=== PATIENT | female | born 1955 ===

== ENCOUNTER 2017-03-23 15:08 | Inpatient (IN) | payer MEDICARE ==
[2017-03-23] MEDS ORDERED: Albuterol-Ipratrop 3 mg / 0.5 (3 ml) UD ONE ×2 (15:20→16:08)
[2017-03-23] MEDS ORDERED: MethylPREDNISolone 40 mg Vial IVP STA (15:46)
[2017-03-23] MEDS ORDERED: Albuterol-Ipratrop 3 mg / 0.5 (3 ml) UD INH STA ×3 (15:46→15:47)
--- NOTE | 2017-03-23 16:01 | C.PDOC ---
History Of Present Illness Patient is a 61 y/o female, whose PMHx includes COPD, and asthma, that presents to the ED for evaluation of cough, and wheezing for the past week. Notes that her symptoms have been getting worse. Pt reports being seen by PMD last week and was given unknown meds. Pt states that she returned to PMD today and was told to report to ED for further evaluation. Otherwise, pt denies any fever, chills, or any other complaints at this time. Time Seen by Provider: 03/23/17 15:36 Chief Complaint (Nursing): Shortness Of Breath History Per: Patient History/Exam Limitations: no limitations Onset/Duration Of Symptoms: Days Current Symptoms Are (Timing): Still Present Severity: None Pain Scale Rating Of: 0 Associated Symptoms: denies: Fever, Chills, Sweating, Chest Pain, Bloody Cough, Heart Racing, Leg/Calf Pain, Ankle/Leg Swelling, Dizziness, Light-headedness, Anxiety, Tingling In Hands Or Face, Musle Spasms In Hands Or Feet Reports Recently: Treated By A Physician Recent travel outside of the [facility]: No Additional History Per: Patient Past Medical History Reviewed: Historical Data, Nursing Documentation, Vital Signs Vital Signs: Last Vital Signs Temp 98.1 F 03/23/17 18:27 Pulse 84 03/23/17 19:43 Resp 20 03/23/17 19:10 BP 146/87 03/23/17 18:27 Pulse Ox 100 03/23/17 18:27 - Medical History PMH: Arthritis, Asthma, COPD, CVA (1990), Depression, HTN Denies: HIV, Chronic Kidney Disease, Seizures, Sexually Transmitted Disease Surgical History: Appendectomy (AGE OF 7), Cholecystectomy (2014) - [employer] (Closed) Procedures MEASURE OF CARDIAC SAMPL & PRESSURE, L HEART, PERC APPROACH (02/01/16) Family History: States: Unknown Family Hx - Social History Hx Tobacco Use: No Hx Alcohol Use: No Hx Substance Use: No - Immunization History Hx Tetanus Toxoid Vaccination: No Hx Influenza Vaccination: Yes Hx Pneumococcal Vaccination: Yes Review Of Systems Except As Marked, All Systems Reviewed And Found Negative. Constitutional: Negative for: Fever, Chills Cardiovascular: Negative for: Chest Pain, Palpitations, Edema, Light Headedness Respiratory: Positive for: Cough, Shortness of Breath, Wheezing Neurological: Negative for: Headache, Dizziness Physical Exam - Physical Exam Appears: Non-toxic, No Acute Distress Skin: Normal Color, Warm, Dry Head: Atraumatic, Normacephalic Eye(s): bilateral: Normal Inspection, EOMI Neck: Normal ROM, Supple Chest: Symmetrical, No Tenderness Cardiovascular: Rhythm Regular, No Murmur Respiratory: No Accessory Muscle Use, No Rales, Rhonchi (diffuse), Wheezing ( diffuse) Gastrointestinal/Abdominal: Soft, No Tenderness Extremity: Normal ROM, No Deformity Neurological/Psych: Oriented x3, Normal Speech, Normal Cognition ED Course And Treatment - Laboratory Results Result Diagrams: 03/23/17 16:09 03/23/17 16:09 O2 Sat by Pulse Oximetry: 98 (on RA) Pulse Ox Interpretation: Normal Progress Note: Labs, EKG, CXR ordered and reviewed. Patient was treated with Albuterol, and Solu-Medrol in the ER. Medical Decision Making Medical Decision Making: copd/asthma r/o pna- labs iamging pending- nebs steriods ekg nsr [address] t wave changes normal intervals 450: pt not improving outpt. needs iv steriods. noted la. no other sirs criteria. code sepsis not activated. cxr neg, but covered emprically. dr bradford accetps Disposition - Disposition Disposition: HOSPITALIZED Disposition Time: 16:50 Condition: STABLE - Clinical Impression Clinical Impression: COPD (chronic obstructive pulmonary disease) - Scribe Statement The provider has reviewed the documentation as recorded by the Scribe Tor Bradford All medical record entries made by the Scribe were at my direction and personally dictated by me. I have reviewed the chart and agree that the record accurately reflects my personal performance of the history, physical exam, medical decision making, and the department course for this patient. I have also personally directed, reviewed, and agree with the discharge instructions and disposition. Decision To Admit - Pt Status Changed To: Hospital Disposition Of: Inpatient - Admit Certification Admit to Inpatient:: After my assessment, the patient will require hospitalization for at least two midnights. This is because of the severity of symptoms shown, intensity of services needed, and/or the medical risk in this patient being treated as an outpatient. - InPatient: Physician Admission Certification: I certify that this patient requires 2 or more midnights of care for the following reason:: pt with failure of outpt - . Bed Request Type: Telemetry Admitting Physician: Heidi Bradford Patient Diagnosis: COPD (chronic obstructive pulmonary disease)
[2017-03-23 16:15] LABS: VENOUS BLOOD GAS BASE EXCESS 4.3 mmol/L (0.0-2.0); VENOUS BLOOD GAS PCO2 47 mmHg (40-60); VENOUS BLOOD GAS PO2 43 mm/Hg (30-55); VENOUS BLOOD PH 7.41 (7.32-7.43)
[2017-03-23 16:21] LABS: BASO % 0.4 % (0.0-2.0); EOS # 0.2 K/uL (0.0-0.7); EOS % 2.3 % (0.0-4.0); HEMOGLOBIN 12.5 g/dL (11.0-16.0); LYMPH # 2.4 K/uL (1.0-4.3); LYMPH % 32.4 % (20.0-40.0); MEAN CELL VOLUME 90.8 fL (81.0-99.0); MEAN CORPUSCULAR HEMOGLOBIN 29.4 pg (27.0-31.0); MEAN CORPUSCULAR HGB CONC 32.4 g/dL (33.0-37.0); MEAN PLATELET VOLUME 8.6 fL (7.2-11.7); MONO # 0.6 K/uL (0.0-0.8); MONO % 8.2 % (0.0-10.0); NEUT # 4.2 K/uL (1.8-7.0); NEUT % 56.7 % (50.0-75.0); RBC 4.25 Mil/uL (3.80-5.20); RED CELL DISTRIBUTION WIDTH 13.6 % (11.5-14.5); WHITE BLOOD COUNT 7.4 K/uL (4.8-10.8)
[2017-03-23 16:22] LABS: ALBUMIN 3.7 g/dL (3.5-5.0)
[2017-03-23 16:25] LABS: ALB/GLOB RATIO 1.2 (1.0-2.1); ALT/SGPT 21 U/L (9-52); AST/SGOT 17 U/L (14-36); BLOOD UREA NITROGEN 14 mg/dL (7-17); GFR AFRICAN-AMERICAN > 60; GFR NON-AFRICAN AMERICAN > 60
[2017-03-23 16:26] LABS: CALCIUM 9.1 mg/dl (8.6-10.4)
[2017-03-23] MEDS ORDERED: Azithromycin 500 MG in Sodium Chloride 0.9% 250 ML IVPB STA (16:30)
[2017-03-23 16:32] LABS: PROTHROMBIN TIME 11.2 SECONDS (9.7-12.2)
--- NOTE | 2017-03-23 16:46 | RAD ---
PROCEDURE: CHEST RADIOGRAPH, 1 VIEW HISTORY: chest pain COMPARISON: 09/26/2016 FINDINGS: LUNGS: Mild venous congestion. Mild patchy increased markings in the medial right infrahilar region. Biapical pleural thickening with upper lobe granulomatous changes. Prominent bibasilar breast shadows. PLEURA: No pneumothorax or pleural fluid seen. CARDIOVASCULAR: Normal. OSSEOUS STRUCTURES: No significant abnormalities. VISUALIZED UPPER ABDOMEN: Normal. OTHER FINDINGS: None. IMPRESSION: Mild venous congestion. Mild patchy increased markings in the medial right infrahilar region. Biapical pleural thickening with upper lobe granulomatous changes. Prominent bibasilar breast shadows.
[2017-03-23] MEDS ORDERED: cefTRIAXone IV 1 gm in Dextros 50 ML IVPB ONE (17:07)
[2017-03-23] MEDS ORDERED: ALENDRONATE SODIUM 70 MG PO SCH (18:45)
[2017-03-23] MEDS: Albuterol-Ipratrop 3 mg / 0.5 (3 ml) UD INH SCH (19:41)
[2017-03-23] MEDS: Fluticasone-Salmeterol 250-50mcg Diskus IH SCH (19:41)
[2017-03-23] MEDS: Azithromycin 500 MG in Sodium Chloride 0.9% 250 ML IVPB SCH (20:21)
[2017-03-23] MEDS: MethylPREDNISolone 40 mg Vial IVP SCH (21:23)
--- NOTE | 2017-03-23 23:08 | CP.PCM.HP ---
Past Patient History - Infectious Disease Hx of Infectious Diseases: None - Past Medical History & Family History Past Medical History?: Yes - Past Social History Smoking Status: Never Smoked - CARDIAC Hx Hypertension: Yes - PULMONARY Hx Asthma: Yes Hx Chronic Obstructive Pulmonary Disease (COPD): Yes - NEUROLOGICAL Hx Seizures: No - RENAL Hx Chronic Kidney Disease: No - ENDOCRINE/METABOLIC Hx Diabetes Mellitus Type 2: No - HEMATOLOGICAL/ONCOLOGICAL Hx Human Immunodeficiency Virus (HIV): No - INTEGUMENTARY Hx Dermatological Problems: No - MUSCULOSKELETAL/RHEUMATOLOGICAL Hx Arthritis: Yes Hx Falls: No - GASTROINTESTINAL Hx Gastrointestinal Disorders: No - GENITOURINARY/GYNECOLOGICAL Hx Sexually Transmitted Disorders: No - PSYCHIATRIC Hx Depression: Yes Hx Substance Use: No - SURGICAL HISTORY Hx Appendectomy: Yes (AGE OF 7) Hx Cholecystectomy: Yes (2014) - ANESTHESIA Hx Anesthesia: Yes Hx Anesthesia Reactions: No Hx Malignant Hyperthermia: No Meds Allergies/Adverse Reactions: Allergies Allergy/AdvReac Type Severity Reaction Status Date / Time No Known Allergies Allergy Verified 03/23/17 15:13 Results - Vital Signs Recent Vital Signs: Last Vital Signs Temp 98.1 F 03/23/17 18:27 Pulse 84 03/23/17 19:43 Resp 20 03/23/17 19:10 BP 146/87 03/23/17 18:27 Pulse Ox 100 03/23/17 18:27 - Labs Result Diagrams: 03/23/17 16:09 03/23/17 16:09
[2017-03-24] MEDS: Albuterol-Ipratrop 3 mg / 0.5 (3 ml) UD INH SCH ×4 (01:06→19:37)
[2017-03-24] MEDS: MethylPREDNISolone 40 mg Vial IVP SCH ×3 (06:09→22:00)
[2017-03-24] MEDS: Fluticasone-Salmeterol 250-50mcg Diskus IH SCH ×2 (08:02→19:37)
[2017-03-24] MEDS ORDERED: Ergocalciferol 50,000 Intl Units Cap PO SCH (10:00)
[2017-03-24] MEDS: Theophylline 200mg ER 24 hrs Cap PO SCH (10:12)
[2017-03-24] MEDS: Pantoprazole 40 mg EC Tab PO SCH (10:12)
[2017-03-24] MEDS: diltiaZEM 120 mg/24 Hours CD Cap PO SCH (10:13)
[2017-03-24] MEDS ORDERED: Azithromycin 500 MG in Sodium Chloride 0.9% 250 ML IVPB SCH (16:00)
--- NOTE | 2017-03-24 17:10 | CARD ---
APPROVED REPORT EKG Measurement Heart [id number] <Conclusion> Normal sinus rhythm Moderate voltage criteria for LVH, may be normal variant Borderline ECG
--- NOTE | 2017-03-24 17:45 | CP.PCM.CON ---
History of Present Illness - History of Present Illness History of Present Illness: Elizabeth aRpp 60-year-old female with past medical history significant for hypertension COPD presenting with complains of ongoing episodes of shortness of breath accompanied with cough for which she was treated as an outpatient with antibiotics did not respond and was subsequently admitted for further evaluation and treatment. She has been seen by 3 different cardiologists in the past but has not followed through.She had undergone cardiac catheterization by Dr. Shivam Albarado in January 2016 which essentially showed normal coronaries. Prior to that she was evaluated by Dr. Duane Wyatt and also by Dr. Harsha Duarte. At baseline she has limited activity secondary to low back pain and herniation of the cervical disc. She can maintain activities of daily living. According to the patient she denied any baseline shortness of breath. She has been on 2 antihypertensives losartan along with diltiazem. I was consulted for further evaluation and treatment of her antihypertensive regimen. Currently she denies having any chest pains. Shortness of breath on presentation most likely attributed to her pulmonary presentation from COPD exacerbation. According to the patient she has a genetic predisposition and mother had asthma. She also was a passive smoker with her ex- who was a heavy smoker. Review of Systems - Review of Systems Systems not reviewed;Unavailable: Respiratory Distress - Constitutional Constitutional: Fatigue - EENT Eyes: As Per HPI - Cardiovascular Cardiovascular: As Per HPI, Dyspnea on Exertion - Respiratory Respiratory: Cough, Dyspnea, Wheezing - Gastrointestinal Gastrointestinal: As Per HPI - Musculoskeletal Musculoskeletal: As Per HPI - Integumentary Integumentary: As Per HPI - Neurological Neurological: As Per HPI - Psychiatric Psychiatric: As Per HPI - Endocrine Endocrine: As Per HPI Past Patient History - Infectious Disease Hx of Infectious Diseases: None - Past Medical History & Family History Past Medical History?: Yes - Past Social History Smoking Status: Never Smoked Chewing Tobacco Use: No Cigar Use: No 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 Drugs: Denies - CARDIAC Hx Cardiac Disorders: No Hx Congestive Heart Failure: No Hx Heart Attack: No Hx Hypertension: Yes - PULMONARY Hx Chronic Obstructive Pulmonary Disease (COPD): Yes - NEUROLOGICAL HX Cerebrovascular Accident: Yes (1990) - RENAL Hx Chronic Kidney Disease: No - ENDOCRINE/METABOLIC Hx Diabetes Mellitus Type 2: No - HEMATOLOGICAL/ONCOLOGICAL Hx Human Immunodeficiency Virus (HIV): No - INTEGUMENTARY Hx Dermatological Problems: No - MUSCULOSKELETAL/RHEUMATOLOGICAL Hx Arthritis: Yes - GASTROINTESTINAL Hx Gastrointestinal Disorders: No - GENITOURINARY/GYNECOLOGICAL Hx Sexually Transmitted Disorders: No - PSYCHIATRIC Hx Depression: Yes Hx Substance Use: No - SURGICAL HISTORY Hx Appendectomy: Yes (AGE OF 7) Hx Cholecystectomy: Yes (2014) - ANESTHESIA Hx Anesthesia: Yes Hx Anesthesia Reactions: No Hx Malignant Hyperthermia: No Meds Allergies/Adverse Reactions: Allergies Allergy/AdvReac Type Severity Reaction Status Date / Time No Known Allergies Allergy Verified 03/23/17 15:13 - Medications Medications: Current Medications Albuterol/Ipratropium (Duoneb 3 Mg/0.5 Mg (3 Ml) Ud) 3 ml INH RQ6 [facility] Last Admin: 03/24/17 13:27 Dose: 3 ml Cyclobenzaprine HCl (Flexeril) 10 mg PO HS [facility] Last Admin: 03/23/17 21:23 Dose: 10 mg Diltiazem HCl (Cardizem Cd) 120 mg PO DAILY [facility] Last Admin: 03/24/17 10:13 Dose: 120 mg Ergocalciferol (Drisdol 50,000 Intl Units Cap) 1 cap PO QWK [facility] Last Admin: 03/24/17 10:12 Dose: 1 cap Fenofibrate (Tricor) 145 mg PO HS [facility] Heparin Sodium (Porcine) (Heparin) 5,000 units SC Q12 [facility] Last Admin: 03/24/17 11:09 Dose: 5,000 units Azithromycin 500 mg/ Sodium (Chloride) 250 mls @ 250 mls/hr IVPB Q24H [facility] Last Admin: 03/23/17 20:21 Dose: 250 mls/hr Losartan Potassium (Cozaar) 50 mg PO DAILY [facility] Last Admin: 03/24/17 10:13 Dose: 50 mg Methylprednisolone (Solu-Medrol) 40 mg IVP Q8 [facility] Last Admin: 03/24/17 14:47 Dose: 40 mg Montelukast Sodium (Singulair) 10 mg PO DAILY [facility] Last Admin: 03/24/17 11:09 Dose: 10 mg Pantoprazole Sodium (Protonix Ec Tab) 40 mg PO DAILY [facility] Last Admin: 03/24/17 10:12 Dose: 40 mg Rosuvastatin Calcium (Crestor) 10 mg PO Q48H [facility] Last Admin: 03/23/17 21:23 Dose: 10 mg Fluticasone/Salmeterol (Advair Diskus 250/50) 1 puff IH RQ12 [facility] Last Admin: 03/24/17 08:02 Dose: 1 puff Sucralfate (Carafate Tab) 1 gm PO QID [facility] Last Admin: 03/24/17 14:47 Dose: 1 gm Theophylline (Aristeo-24) 400 mg PO DAILY [facility] Last Admin: 03/24/17 10:12 Dose: 400 mg Zolpidem Tartrate (Ambien) 5 mg PO HS [facility] Last Admin: 03/23/17 21:23 Dose: 5 mg Physical Exam - Constitutional Appears: Well, No Acute Distress - Head Exam Head Exam: ATRAUMATIC, NORMAL INSPECTION, NORMOCEPHALIC - Eye Exam Eye Exam: EOMI, Normal appearance Pupil Exam: NORMAL ACCOMODATION, PERRL - ENT Exam ENT Exam: Normal Exam - Neck Exam Neck exam: Positive for: Normal Inspection Additional comments: no JVP - Respiratory Exam Respiratory Exam: Clear to Auscultation Bilateral, NORMAL BREATHING PATTERN - Cardiovascular Exam Cardiovascular Exam: REGULAR RHYTHM, RRR, Systolic Murmur - GI/Abdominal Exam GI & Abdominal Exam: Normal Bowel Sounds, Soft - Rectal Exam Rectal Exam: Deferred - Extremities Exam Extremities exam: Positive for: full ROM, normal inspection, pedal pulses present - Back Exam Back exam: NORMAL INSPECTION - Neurological Exam Neurological exam: Alert, CN II-XII Intact, Oriented x3, Reflexes Normal - Skin Skin Exam: Normal Color, Warm Results - Vital Signs Recent Vital Signs: Last Vital Signs Temp 98.1 F 03/24/17 15:39 Pulse 104 H 03/24/17 15:39 Resp 20 03/24/17 15:39 BP 137/74 03/24/17 15:39 Pulse Ox 96 03/24/17 15:39 - Labs Result Diagrams: 03/23/17 16:09 03/23/17 16:09 - EKG Data EKG Interpreted by: Myself EKG shows normal: Sinus rhythm, [place], Intervals, QRS complexes Rate: Normal Assessment & Plan (1) HTN (hypertension) Assessment and Plan: BP well controlled continue home regimen of losartan and diltiazem xl 120mg po daily will adjust BP meds based on daily monitoring of her BP with diary in 4-6 weeks rx with steroids for COPD likely to cause mild diastolic HTN Status: Chronic Priority: Medium (2) Dyslipidemia Assessment and Plan: no recent lipid panel check FLP cont low dose statins Status: Chronic (3) Sinus tachycardia Assessment and Plan: in the setting of acute COPD exacerbation cont to monitor on telemetry check echocardiogram to assess PAP and LV/RV function Status: Acute Priority: Medium Comment: Further titration of therapy based on clinical course and response to above therapy
--- NOTE | 2017-03-24 18:11 | CP.PCM.PN ---
Subjective - Date & Time of Evaluation Date of Evaluation: 03/24/17 Time of Evaluation: 10:40 - Subjective Subjective: clinically same Objective - Vital Signs/Intake and Output Vital Signs (last 24 hours): Temp Pulse Resp BP Pulse Ox 98.1 F 104 H 20 137/74 96 03/24/17 15:39 03/24/17 15:39 03/24/17 15:39 03/24/17 15:39 03/24/17 15:39 Intake and Output: 03/24/17 03/24/17 06:59 18:59 Intake Total 240 480 Balance 240 480 - Medications Medications: Current Medications Albuterol/Ipratropium (Duoneb 3 Mg/0.5 Mg (3 Ml) Ud) 3 ml INH RQ6 [facility] Last Admin: 03/24/17 13:27 Dose: 3 ml Cyclobenzaprine HCl (Flexeril) 10 mg PO HS [facility] Last Admin: 03/23/17 21:23 Dose: 10 mg Diltiazem HCl (Cardizem Cd) 120 mg PO DAILY [facility] Last Admin: 03/24/17 10:13 Dose: 120 mg Ergocalciferol (Drisdol 50,000 Intl Units Cap) 1 cap PO QWK [facility] Last Admin: 03/24/17 10:12 Dose: 1 cap Fenofibrate (Tricor) 145 mg PO HS [facility] Heparin Sodium (Porcine) (Heparin) 5,000 units SC Q12 [facility] Last Admin: 03/24/17 11:09 Dose: 5,000 units Azithromycin 500 mg/ Sodium (Chloride) 250 mls @ 250 mls/hr IVPB Q24H [facility] Last Admin: 03/23/17 20:21 Dose: 250 mls/hr Losartan Potassium (Cozaar) 50 mg PO DAILY [facility] Last Admin: 03/24/17 10:13 Dose: 50 mg Methylprednisolone (Solu-Medrol) 40 mg IVP Q8 [facility] Last Admin: 03/24/17 14:47 Dose: 40 mg Montelukast Sodium (Singulair) 10 mg PO DAILY [facility] Last Admin: 03/24/17 11:09 Dose: 10 mg Pantoprazole Sodium (Protonix Ec Tab) 40 mg PO DAILY [facility] Last Admin: 03/24/17 10:12 Dose: 40 mg Rosuvastatin Calcium (Crestor) 10 mg PO Q48H [facility] Last Admin: 03/23/17 21:23 Dose: 10 mg Fluticasone/Salmeterol (Advair Diskus 250/50) 1 puff IH RQ12 [facility] Last Admin: 03/24/17 08:02 Dose: 1 puff Sucralfate (Carafate Tab) 1 gm PO QID [facility] Last Admin: 03/24/17 14:47 Dose: 1 gm Theophylline (Aristeo-24) 400 mg PO DAILY [facility] Last Admin: 03/24/17 10:12 Dose: 400 mg Zolpidem Tartrate (Ambien) 5 mg PO HS [facility] Last Admin: 03/23/17 21:23 Dose: 5 mg - Labs Labs: PT 11.2 SECONDS (9.7-12.2) 03/23/17 16:09 INR 1.0 03/23/17 16:09 APTT 31 SECONDS (21-34) 03/23/17 16:09 - Constitutional Appears: Well - Head Exam Head Exam: ATRAUMATIC, NORMAL INSPECTION, NORMOCEPHALIC - Eye Exam Eye Exam: EOMI, Normal appearance, PERRL Pupil Exam: NORMAL ACCOMODATION, PERRL - ENT Exam ENT Exam: Mucous Membranes Moist, Normal Exam - Neck Exam Neck Exam: Full ROM, Normal Inspection. absent: Lymphadenopathy - Respiratory Exam Respiratory Exam: Decreased Breath Sounds - Cardiovascular Exam Cardiovascular Exam: REGULAR RHYTHM, +S1, +S2 - GI/Abdominal Exam GI & Abdominal Exam: Soft, Diminished Bowel Sounds - Rectal Exam Rectal Exam: Deferred
--- NOTE | 2017-03-24 18:26 | CP.PCM.CON ---
History of Present Illness - History of Present Illness History of Present Illness: Patient is a 61 y/o female, whose PMHx includes COPD, and asthma, that presents to the ED for evaluation of cough, and wheezing for the past week. Notes that her symptoms have been getting worse. Pt denies any fever, chills, or any other complaints at this time. She feels better after Rx in the hospital and admits to be non complaint with Advair Review of Systems - Review of Systems All systems: reviewed and no additional remarkable complaints except (As mentioned in HPI) Past Patient History - Infectious Disease Hx of Infectious Diseases: None - Past Medical History & Family History Past Medical History?: Yes - Past Social History Smoking Status: Never Smoked - CARDIAC Hx Hypertension: Yes - PULMONARY Hx Chronic Obstructive Pulmonary Disease (COPD): Yes - NEUROLOGICAL HX Cerebrovascular Accident: Yes (1990) - RENAL Hx Chronic Kidney Disease: No - ENDOCRINE/METABOLIC Hx Diabetes Mellitus Type 2: No - HEMATOLOGICAL/ONCOLOGICAL Hx Human Immunodeficiency Virus (HIV): No - INTEGUMENTARY Hx Dermatological Problems: No - MUSCULOSKELETAL/RHEUMATOLOGICAL Hx Arthritis: Yes - GASTROINTESTINAL Hx Gastrointestinal Disorders: No - GENITOURINARY/GYNECOLOGICAL Hx Sexually Transmitted Disorders: No - PSYCHIATRIC Hx Depression: Yes Hx Substance Use: No - SURGICAL HISTORY Hx Appendectomy: Yes (AGE OF 7) Hx Cholecystectomy: Yes (2014) - ANESTHESIA Hx Anesthesia: Yes Hx Anesthesia Reactions: No Hx Malignant Hyperthermia: No Meds Allergies/Adverse Reactions: Allergies Allergy/AdvReac Type Severity Reaction Status Date / Time No Known Allergies Allergy Verified 03/23/17 15:13 - Medications Medications: Current Medications Albuterol/Ipratropium (Duoneb 3 Mg/0.5 Mg (3 Ml) Ud) 3 ml INH RQ6 [facility] Last Admin: 03/24/17 13:27 Dose: 3 ml Cyclobenzaprine HCl (Flexeril) 10 mg PO HS [facility] Last Admin: 03/23/17 21:23 Dose: 10 mg Diltiazem HCl (Cardizem Cd) 120 mg PO DAILY [facility] Last Admin: 03/24/17 10:13 Dose: 120 mg Ergocalciferol (Drisdol 50,000 Intl Units Cap) 1 cap PO QWK [facility] Last Admin: 03/24/17 10:12 Dose: 1 cap Fenofibrate (Tricor) 145 mg PO HS [facility] Heparin Sodium (Porcine) (Heparin) 5,000 units SC Q12 [facility] Last Admin: 03/24/17 11:09 Dose: 5,000 units Azithromycin 500 mg/ Sodium (Chloride) 250 mls @ 250 mls/hr IVPB Q24H [facility] Last Admin: 03/23/17 20:21 Dose: 250 mls/hr Losartan Potassium (Cozaar) 50 mg PO DAILY [facility] Last Admin: 03/24/17 10:13 Dose: 50 mg Methylprednisolone (Solu-Medrol) 40 mg IVP Q8 [facility] Last Admin: 03/24/17 14:47 Dose: 40 mg Montelukast Sodium (Singulair) 10 mg PO DAILY [facility] Last Admin: 03/24/17 11:09 Dose: 10 mg Pantoprazole Sodium (Protonix Ec Tab) 40 mg PO DAILY [facility] Last Admin: 03/24/17 10:12 Dose: 40 mg Rosuvastatin Calcium (Crestor) 10 mg PO Q48H [facility] Last Admin: 03/23/17 21:23 Dose: 10 mg Fluticasone/Salmeterol (Advair Diskus 250/50) 1 puff IH RQ12 [facility] Last Admin: 03/24/17 08:02 Dose: 1 puff Sucralfate (Carafate Tab) 1 gm PO QID [facility] Last Admin: 03/24/17 14:47 Dose: 1 gm Theophylline (Aristeo-24) 400 mg PO DAILY [facility] Last Admin: 03/24/17 10:12 Dose: 400 mg Zolpidem Tartrate (Ambien) 5 mg PO HS [facility] Last Admin: 03/23/17 21:23 Dose: 5 mg Physical Exam - Head Exam Head Exam: NORMAL INSPECTION - Eye Exam Eye Exam: Normal appearance - ENT Exam ENT Exam: Mucous Membranes Moist - Respiratory Exam Respiratory Exam: Prolonged Expiratory Phase, Wheezes - Cardiovascular Exam Cardiovascular Exam: REGULAR RHYTHM, +S1, +S2 - GI/Abdominal Exam GI & Abdominal Exam: Normal Bowel Sounds, Soft - Neurological Exam Neurological exam: Alert, Oriented x3 - Psychiatric Exam Psychiatric exam: Normal Affect, Normal Mood - Skin Skin Exam: Normal Color, Warm Results - Vital Signs Recent Vital Signs: Last Vital Signs Temp 98.1 F 03/24/17 15:39 Pulse 104 H 03/24/17 15:39 Resp 20 03/24/17 15:39 BP 137/74 07/07/17 15:39 Pulse Ox 96 03/24/17 15:39 - Labs Result Diagrams: 03/23/17 16:09 03/23/17 16:09 Assessment & Plan - Assessment and Plan (Free Text) Assessment: COPD exacerbation IV steroids Bronchodilators O2 Chest PT
[2017-03-24] MEDS: Azithromycin 500 MG in Sodium Chloride 0.9% 250 ML IVPB SCH (20:00)
[2017-03-25] MEDS: Albuterol-Ipratrop 3 mg / 0.5 (3 ml) UD INH SCH ×4 (01:19→20:09)
[2017-03-25] MEDS: MethylPREDNISolone 40 mg Vial IVP SCH ×3 (05:14→21:28)
[2017-03-25] MEDS: Fluticasone-Salmeterol 250-50mcg Diskus IH SCH ×2 (08:10→20:12)
[2017-03-25] MEDS: Pantoprazole 40 mg EC Tab PO SCH (09:10)
[2017-03-25] MEDS: diltiaZEM 120 mg/24 Hours CD Cap PO SCH (09:10)
[2017-03-25] MEDS: Theophylline 200mg ER 24 hrs Cap PO SCH (09:13)
--- NOTE | 2017-03-25 13:30 | CP.PCM.PN ---
Subjective - Date & Time of Evaluation Date of Evaluation: 03/25/17 Time of Evaluation: 13:28 - Subjective Subjective: Pt seen and examined No events overnight Less dyspnic Objective - Vital Signs/Intake and Output Vital Signs (last 24 hours): Temp Pulse Resp BP Pulse Ox 98.3 F 66 20 124/66 98 03/25/17 08:00 03/25/17 08:00 03/25/17 08:00 03/25/17 08:00 03/25/17 08:00 Intake and Output: 03/25/17 03/25/17 06:59 18:59 Intake Total 240 Balance 240 - Medications Medications: Current Medications Albuterol/Ipratropium (Duoneb 3 Mg/0.5 Mg (3 Ml) Ud) 3 ml INH RQ6 [facility] Last Admin: 03/25/17 08:10 Dose: 3 ml Cyclobenzaprine HCl (Flexeril) 10 mg PO HS [facility] Last Admin: 03/24/17 22:01 Dose: 10 mg Diltiazem HCl (Cardizem Cd) 120 mg PO DAILY [facility] Last Admin: 03/25/17 09:10 Dose: 120 mg Ergocalciferol (Drisdol 50,000 Intl Units Cap) 1 cap PO QWK [facility] Last Admin: 03/24/17 10:12 Dose: 1 cap Fenofibrate (Tricor) 145 mg PO HS [facility] Last Admin: 03/24/17 22:01 Dose: 145 mg Heparin Sodium (Porcine) (Heparin) 5,000 units SC Q12 [facility] Last Admin: 03/25/17 09:10 Dose: 5,000 units Azithromycin 500 mg/ Sodium (Chloride) 250 mls @ 250 mls/hr IVPB Q24H [facility] Last Admin: 03/24/17 20:00 Dose: 250 mls/hr Losartan Potassium (Cozaar) 50 mg PO DAILY [facility] Last Admin: 03/25/17 09:10 Dose: 50 mg Methylprednisolone (Solu-Medrol) 40 mg IVP Q8 [facility] Last Admin: 03/25/17 05:14 Dose: 40 mg Montelukast Sodium (Singulair) 10 mg PO DAILY [facility] Last Admin: 03/25/17 09:10 Dose: 10 mg Pantoprazole Sodium (Protonix Ec Tab) 40 mg PO DAILY [facility] Last Admin: 03/25/17 09:10 Dose: 40 mg Rosuvastatin Calcium (Crestor) 10 mg PO Q48H [facility] Last Admin: 03/23/17 21:23 Dose: 10 mg Fluticasone/Salmeterol (Advair Diskus 250/50) 1 puff IH RQ12 [facility] Last Admin: 03/25/17 08:10 Dose: 1 puff Sucralfate (Carafate Tab) 1 gm PO QID [facility] Last Admin: 03/25/17 09:10 Dose: 1 gm Theophylline (Aristeo-24) 400 mg PO DAILY [facility] Last Admin: 03/25/17 09:13 Dose: 400 mg Zolpidem Tartrate (Ambien) 5 mg PO HS [facility] Last Admin: 03/24/17 22:08 Dose: 5 mg - Labs Labs: PT 11.2 SECONDS (9.7-12.2) 03/23/17 16:09 INR 1.0 03/23/17 16:09 APTT 31 SECONDS (21-34) 03/23/17 16:09 - Head Exam Head Exam: NORMAL INSPECTION - ENT Exam ENT Exam: Mucous Membranes Moist - Respiratory Exam Respiratory Exam: Prolonged Expiratory Phase - Cardiovascular Exam Cardiovascular Exam: REGULAR RHYTHM, +S1, +S2 - GI/Abdominal Exam GI & Abdominal Exam: Soft, Normal Bowel Sounds - Neurological Exam Neurological Exam: Alert, Oriented x3 - Psychiatric Exam Psychiatric exam: Normal Affect, Normal Mood Assessment and Plan - Assessment and Plan (Free Text) Assessment: COPD exacerbation IV steroids Bronchodilators O2 Chest PT Advair 250/50 1 P BID
--- NOTE | 2017-03-25 14:29 | CP.PCM.PN ---
Subjective - Date & Time of Evaluation Date of Evaluation: 03/25/17 Time of Evaluation: 11:20 - Subjective Subjective: clinically same Objective - Vital Signs/Intake and Output Vital Signs (last 24 hours): Temp Pulse Resp BP Pulse Ox 98.3 F 66 20 124/66 98 03/25/17 08:00 03/25/17 08:00 03/25/17 08:00 03/25/17 08:00 03/25/17 08:00 Intake and Output: 03/25/17 03/25/17 06:59 18:59 Intake Total 240 Balance 240 - Medications Medications: Current Medications Albuterol/Ipratropium (Duoneb 3 Mg/0.5 Mg (3 Ml) Ud) 3 ml INH RQ6 [facility] Last Admin: 03/25/17 14:09 Dose: 3 ml Cyclobenzaprine HCl (Flexeril) 10 mg PO HS [facility] Last Admin: 03/24/17 22:01 Dose: 10 mg Diltiazem HCl (Cardizem Cd) 120 mg PO DAILY [facility] Last Admin: 03/25/17 09:10 Dose: 120 mg Ergocalciferol (Drisdol 50,000 Intl Units Cap) 1 cap PO QWK [facility] Last Admin: 03/24/17 10:12 Dose: 1 cap Fenofibrate (Tricor) 145 mg PO HS [facility] Last Admin: 03/24/17 22:01 Dose: 145 mg Heparin Sodium (Porcine) (Heparin) 5,000 units SC Q12 [facility] Last Admin: 03/25/17 09:10 Dose: 5,000 units Azithromycin 500 mg/ Sodium (Chloride) 250 mls @ 250 mls/hr IVPB Q24H [facility] Last Admin: 03/24/17 20:00 Dose: 250 mls/hr Losartan Potassium (Cozaar) 50 mg PO DAILY [facility] Last Admin: 03/25/17 09:10 Dose: 50 mg Methylprednisolone (Solu-Medrol) 40 mg IVP Q8 [facility] Last Admin: 03/25/17 13:29 Dose: 40 mg Montelukast Sodium (Singulair) 10 mg PO DAILY [facility] Last Admin: 03/25/17 09:10 Dose: 10 mg Pantoprazole Sodium (Protonix Ec Tab) 40 mg PO DAILY [facility] Last Admin: 03/25/17 09:10 Dose: 40 mg Rosuvastatin Calcium (Crestor) 10 mg PO Q48H [facility] Last Admin: 03/23/17 21:23 Dose: 10 mg Fluticasone/Salmeterol (Advair Diskus 250/50) 1 puff IH RQ12 [facility] Last Admin: 03/25/17 08:10 Dose: 1 puff Sucralfate (Carafate Tab) 1 gm PO QID [facility] Last Admin: 03/25/17 13:29 Dose: 1 gm Theophylline (Aristeo-24) 400 mg PO DAILY [facility] Last Admin: 03/25/17 09:13 Dose: 400 mg Zolpidem Tartrate (Ambien) 5 mg PO HS [facility] Last Admin: 03/24/17 22:08 Dose: 5 mg - Labs Labs: PT 11.2 SECONDS (9.7-12.2) 03/23/17 16:09 INR 1.0 03/23/17 16:09 APTT 31 SECONDS (21-34) 03/23/17 16:09 - Constitutional Appears: Well - Head Exam Head Exam: ATRAUMATIC, NORMAL INSPECTION, NORMOCEPHALIC - Eye Exam Eye Exam: EOMI, Normal appearance, PERRL Pupil Exam: NORMAL ACCOMODATION, PERRL - ENT Exam ENT Exam: Mucous Membranes Moist, Normal Exam - Neck Exam Neck Exam: Full ROM, Normal Inspection. absent: Lymphadenopathy - Respiratory Exam Respiratory Exam: Decreased Breath Sounds - Cardiovascular Exam Cardiovascular Exam: REGULAR RHYTHM, +S1, +S2 - GI/Abdominal Exam GI & Abdominal Exam: Soft, Diminished Bowel Sounds - Rectal Exam Rectal Exam: Deferred
[2017-03-25] MEDS: Azithromycin 500 MG in Sodium Chloride 0.9% 250 ML IVPB SCH (19:47)
[2017-03-25] MEDS ORDERED: Promethazine 12.5 mg/10 ml Syrup PO PRN (20:22)
[2017-03-26] MEDS: Albuterol-Ipratrop 3 mg / 0.5 (3 ml) UD INH SCH ×4 (01:44→20:07)
[2017-03-26] MEDS: MethylPREDNISolone 40 mg Vial IVP SCH ×3 (05:57→22:07)
[2017-03-26] MEDS: Fluticasone-Salmeterol 250-50mcg Diskus IH SCH ×2 (08:40→20:07)
[2017-03-26] MEDS: Pantoprazole 40 mg EC Tab PO SCH (10:29)
[2017-03-26] MEDS: diltiaZEM 120 mg/24 Hours CD Cap PO SCH (10:31)
[2017-03-26] MEDS: Theophylline 200mg ER 24 hrs Cap PO SCH (12:30)
--- NOTE | 2017-03-26 16:06 | CP.PCM.PN ---
Subjective - Date & Time of Evaluation Date of Evaluation: 03/26/17 Time of Evaluation: 16:06 Objective - Vital Signs/Intake and Output Vital Signs (last 24 hours): Temp Pulse Resp BP Pulse Ox 98.4 F 80 18 139/77 97 03/26/17 09:24 03/26/17 09:24 03/26/17 09:24 03/26/17 09:24 03/26/17 09:24 Intake and Output: 03/26/17 03/26/17 06:59 18:59 Intake Total 1650 Balance 1650 - Medications Medications: Current Medications Albuterol/Ipratropium (Duoneb 3 Mg/0.5 Mg (3 Ml) Ud) 3 ml INH RQ6 [facility] Last Admin: 03/26/17 13:21 Dose: 3 ml Cyclobenzaprine HCl (Flexeril) 10 mg PO HS [facility] Last Admin: 03/25/17 21:28 Dose: 10 mg Diltiazem HCl (Cardizem Cd) 120 mg PO DAILY [facility] Last Admin: 03/26/17 10:31 Dose: 120 mg Ergocalciferol (Drisdol 50,000 Intl Units Cap) 1 cap PO QWK [facility] Last Admin: 03/24/17 10:12 Dose: 1 cap Fenofibrate (Tricor) 145 mg PO HS [facility] Last Admin: 03/25/17 22:08 Dose: 145 mg Heparin Sodium (Porcine) (Heparin) 5,000 units SC Q12 [facility] Last Admin: 03/26/17 10:26 Dose: 5,000 units Azithromycin 500 mg/ Sodium (Chloride) 250 mls @ 250 mls/hr IVPB Q24H [facility] Last Admin: 03/25/17 19:47 Dose: 250 mls/hr Losartan Potassium (Cozaar) 50 mg PO DAILY [facility] Last Admin: 03/26/17 10:30 Dose: 50 mg Methylprednisolone (Solu-Medrol) 40 mg IVP Q8 [facility] Last Admin: 03/26/17 15:16 Dose: 40 mg Montelukast Sodium (Singulair) 10 mg PO DAILY [facility] Last Admin: 03/26/17 10:30 Dose: 10 mg Pantoprazole Sodium (Protonix Ec Tab) 40 mg PO DAILY [facility] Last Admin: 03/26/17 10:29 Dose: 40 mg Promethazine HCl (Phenergan Syrup) 12.5 mg PO Q6 PRN PRN Reason: Cough Last Admin: 03/25/17 22:42 Dose: 12.5 mg Rosuvastatin Calcium (Crestor) 10 mg PO Q48H [facility] Last Admin: 03/25/17 21:28 Dose: 10 mg Fluticasone/Salmeterol (Advair Diskus 250/50) 1 puff IH RQ12 [facility] Last Admin: 03/26/17 08:40 Dose: 1 puff Sucralfate (Carafate Tab) 1 gm PO QID [facility] Last Admin: 03/26/17 15:22 Dose: 1 gm Theophylline (Aristeo-24) 400 mg PO DAILY [facility] Last Admin: 03/26/17 12:30 Dose: 400 mg Zolpidem Tartrate (Ambien) 5 mg PO HS [facility] Last Admin: 03/25/17 22:16 Dose: 5 mg - Labs Labs: PT 11.2 SECONDS (9.7-12.2) 03/23/17 16:09 INR 1.0 03/23/17 16:09 APTT 31 SECONDS (21-34) 03/23/17 16:09
[2017-03-26] MEDS: Azithromycin 500 MG in Sodium Chloride 0.9% 250 ML IVPB SCH (19:20)
--- NOTE | 2017-03-26 20:58 | CP.PCM.PN ---
Subjective - Date & Time of Evaluation Date of Evaluation: 03/26/17 Time of Evaluation: 10:20 - Subjective Subjective: clinically same Objective - Vital Signs/Intake and Output Vital Signs (last 24 hours): Temp Pulse Resp BP Pulse Ox 98 F 84 20 119/72 96 03/26/17 15:00 03/26/17 15:00 03/26/17 15:00 03/26/17 15:00 03/26/17 15:00 - Medications Medications: Current Medications Albuterol/Ipratropium (Duoneb 3 Mg/0.5 Mg (3 Ml) Ud) 3 ml INH RQ6 [facility] Last Admin: 03/26/17 20:07 Dose: Not Given Cyclobenzaprine HCl (Flexeril) 10 mg PO HS [facility] Last Admin: 03/25/17 21:28 Dose: 10 mg Diltiazem HCl (Cardizem Cd) 120 mg PO DAILY [facility] Last Admin: 03/26/17 10:31 Dose: 120 mg Ergocalciferol (Drisdol 50,000 Intl Units Cap) 1 cap PO QWK [facility] Last Admin: 03/24/17 10:12 Dose: 1 cap Fenofibrate (Tricor) 145 mg PO HS [facility] Last Admin: 03/25/17 22:08 Dose: 145 mg Heparin Sodium (Porcine) (Heparin) 5,000 units SC Q12 [facility] Last Admin: 03/26/17 10:26 Dose: 5,000 units Azithromycin 500 mg/ Sodium (Chloride) 250 mls @ 250 mls/hr IVPB Q24H [facility] Last Admin: 03/26/17 19:20 Dose: 250 mls/hr Losartan Potassium (Cozaar) 50 mg PO DAILY [facility] Last Admin: 03/26/17 10:30 Dose: 50 mg Methylprednisolone (Solu-Medrol) 40 mg IVP Q8 [facility] Last Admin: 03/26/17 15:16 Dose: 40 mg Montelukast Sodium (Singulair) 10 mg PO DAILY [facility] Last Admin: 03/26/17 10:30 Dose: 10 mg Pantoprazole Sodium (Protonix Ec Tab) 40 mg PO DAILY [facility] Last Admin: 03/26/17 10:29 Dose: 40 mg Promethazine HCl (Phenergan Syrup) 12.5 mg PO Q6 PRN PRN Reason: Cough Last Admin: 03/25/17 22:42 Dose: 12.5 mg Rosuvastatin Calcium (Crestor) 10 mg PO Q48H [facility] Last Admin: 03/25/17 21:28 Dose: 10 mg Fluticasone/Salmeterol (Advair Diskus 250/50) 1 puff IH RQ12 [facility] Last Admin: 03/26/17 20:07 Dose: 1 puff Sucralfate (Carafate Tab) 1 gm PO QID [facility] Last Admin: 03/26/17 18:51 Dose: 1 gm Theophylline (Aristeo-24) 400 mg PO DAILY [facility] Last Admin: 03/26/17 12:30 Dose: 400 mg Zolpidem Tartrate (Ambien) 5 mg PO HS [facility] Last Admin: 03/25/17 22:16 Dose: 5 mg - Labs Labs: PT 11.2 SECONDS (9.7-12.2) 03/23/17 16:09 INR 1.0 03/23/17 16:09 APTT 31 SECONDS (21-34) 03/23/17 16:09 - Constitutional Appears: Well - Head Exam Head Exam: ATRAUMATIC, NORMAL INSPECTION, NORMOCEPHALIC - Eye Exam Eye Exam: EOMI, Normal appearance, PERRL Pupil Exam: NORMAL ACCOMODATION, PERRL - ENT Exam ENT Exam: Mucous Membranes Moist, Normal Exam - Neck Exam Neck Exam: Full ROM, Normal Inspection. absent: Lymphadenopathy - Respiratory Exam Respiratory Exam: Decreased Breath Sounds - Cardiovascular Exam Cardiovascular Exam: REGULAR RHYTHM, +S1, +S2 - GI/Abdominal Exam GI & Abdominal Exam: Soft, Diminished Bowel Sounds - Rectal Exam Rectal Exam: Deferred
--- NOTE | 2017-03-26 21:28 | CP.PCM.PN ---
Subjective - Date & Time of Evaluation Date of Evaluation: 03/26/17 Time of Evaluation: 21:25 - Subjective Subjective: feeling better today BP well controlled Objective - Vital Signs/Intake and Output Vital Signs (last 24 hours): Temp Pulse Resp BP Pulse Ox 98 F 84 20 119/72 96 03/26/17 15:00 03/26/17 15:00 03/26/17 15:00 03/26/17 15:00 03/26/17 15:00 - Medications Medications: Current Medications Albuterol/Ipratropium (Duoneb 3 Mg/0.5 Mg (3 Ml) Ud) 3 ml INH RQ6 [facility] Last Admin: 03/26/17 20:07 Dose: Not Given Cyclobenzaprine HCl (Flexeril) 10 mg PO HS [facility] Last Admin: 03/25/17 21:28 Dose: 10 mg Diltiazem HCl (Cardizem Cd) 120 mg PO DAILY [facility] Last Admin: 03/26/17 10:31 Dose: 120 mg Ergocalciferol (Drisdol 50,000 Intl Units Cap) 1 cap PO QWK [facility] Last Admin: 03/24/17 10:12 Dose: 1 cap Fenofibrate (Tricor) 145 mg PO HS [facility] Last Admin: 03/25/17 22:08 Dose: 145 mg Heparin Sodium (Porcine) (Heparin) 5,000 units SC Q12 [facility] Last Admin: 03/26/17 10:26 Dose: 5,000 units Azithromycin 500 mg/ Sodium (Chloride) 250 mls @ 250 mls/hr IVPB Q24H [facility] Last Admin: 03/26/17 19:20 Dose: 250 mls/hr Losartan Potassium (Cozaar) 50 mg PO DAILY [facility] Last Admin: 03/26/17 10:30 Dose: 50 mg Methylprednisolone (Solu-Medrol) 40 mg IVP Q8 [facility] Last Admin: 03/26/17 15:16 Dose: 40 mg Montelukast Sodium (Singulair) 10 mg PO DAILY [facility] Last Admin: 03/26/17 10:30 Dose: 10 mg Pantoprazole Sodium (Protonix Ec Tab) 40 mg PO DAILY [facility] Last Admin: 03/26/17 10:29 Dose: 40 mg Promethazine HCl (Phenergan Syrup) 12.5 mg PO Q6 PRN PRN Reason: Cough Last Admin: 03/25/17 22:42 Dose: 12.5 mg Rosuvastatin Calcium (Crestor) 10 mg PO Q48H [facility] Last Admin: 03/25/17 21:28 Dose: 10 mg Fluticasone/Salmeterol (Advair Diskus 250/50) 1 puff IH RQ12 [facility] Last Admin: 03/26/17 20:07 Dose: 1 puff Sucralfate (Carafate Tab) 1 gm PO QID [facility] Last Admin: 03/26/17 18:51 Dose: 1 gm Theophylline (Aristeo-24) 400 mg PO DAILY [facility] Last Admin: 03/26/17 12:30 Dose: 400 mg Zolpidem Tartrate (Ambien) 5 mg PO HS [facility] Last Admin: 03/25/17 22:16 Dose: 5 mg - Labs Labs: PT 11.2 SECONDS (9.7-12.2) 03/23/17 16:09 INR 1.0 03/23/17 16:09 APTT 31 SECONDS (21-34) 03/23/17 16:09 - Constitutional Appears: Well, No Acute Distress - Head Exam Head Exam: ATRAUMATIC, NORMAL INSPECTION, NORMOCEPHALIC - Eye Exam Eye Exam: EOMI, Normal appearance Pupil Exam: NORMAL ACCOMODATION, PERRL - ENT Exam ENT Exam: Mucous Membranes Moist, Normal Exam - Neck Exam Neck Exam: Full ROM, Normal Inspection - Respiratory Exam Respiratory Exam: Clear to Ausculation Bilateral, NORMAL BREATHING PATTERN - Cardiovascular Exam Cardiovascular Exam: REGULAR RHYTHM, +S1, +S2, Murmur - GI/Abdominal Exam GI & Abdominal Exam: Soft, Normal Bowel Sounds - Rectal Exam Rectal Exam: NORMAL INSPECTION - Extremities Exam Extremities Exam: Full ROM, Normal Capillary Refill, Normal Inspection - Back Exam Back Exam: NORMAL INSPECTION - Psychiatric Exam Psychiatric exam: Normal Affect, Normal Mood - Skin Skin Exam: Normal Color Assessment and Plan (1) HTN (hypertension) Assessment & Plan: BP well controlled cont BB and CCB Status: Chronic (2) Dyslipidemia Assessment & Plan: Pt didn't tolerate statins in the past will cont with fenofibrates and zetia on discharge FLP pending Status: Chronic (3) Sinus tachycardia Assessment & Plan: Etiology 2' to COPD exacerbation improving Status: Acute
[2017-03-27] MEDS: Albuterol-Ipratrop 3 mg / 0.5 (3 ml) UD INH SCH ×3 (01:40→14:02)
[2017-03-27] MEDS: MethylPREDNISolone 40 mg Vial IVP SCH (05:07)
[2017-03-27] MEDS: Fluticasone-Salmeterol 250-50mcg Diskus IH SCH (07:56)
--- NOTE | 2017-03-27 09:24 | CP.PCM.PN ---
Subjective - Date & Time of Evaluation Date of Evaluation: 03/27/17 Time of Evaluation: 10:00 - Subjective Subjective: feeling fine, denies any complaints. SOB resolved Objective - Vital Signs/Intake and Output Vital Signs (last 24 hours): Temp Pulse Resp BP Pulse Ox 97.4 F L 89 18 146/84 95 03/27/17 09:09 03/27/17 04:00 03/27/17 09:09 03/27/17 09:09 03/27/17 09:09 Intake and Output: 03/27/17 03/27/17 06:59 18:59 Intake Total 1440 Balance 1440 - Medications Medications: Current Medications Albuterol/Ipratropium (Duoneb 3 Mg/0.5 Mg (3 Ml) Ud) 3 ml INH RQ6 [facility] Last Admin: 03/27/17 07:56 Dose: 3 ml Cyclobenzaprine HCl (Flexeril) 10 mg PO HS [facility] Last Admin: 03/26/17 22:07 Dose: 10 mg Diltiazem HCl (Cardizem Cd) 120 mg PO DAILY [facility] Last Admin: 03/26/17 10:31 Dose: 120 mg Ergocalciferol (Drisdol 50,000 Intl Units Cap) 1 cap PO QWK [facility] Last Admin: 03/24/17 10:12 Dose: 1 cap Fenofibrate (Tricor) 145 mg PO HS [facility] Last Admin: 03/26/17 22:07 Dose: 145 mg Heparin Sodium (Porcine) (Heparin) 5,000 units SC Q12 [facility] Last Admin: 03/26/17 22:08 Dose: 5,000 units Azithromycin 500 mg/ Sodium (Chloride) 250 mls @ 250 mls/hr IVPB Q24H [facility] Last Admin: 03/26/17 19:20 Dose: 250 mls/hr Losartan Potassium (Cozaar) 50 mg PO DAILY [facility] Last Admin: 03/26/17 10:30 Dose: 50 mg Methylprednisolone (Solu-Medrol) 40 mg IVP Q8 [facility] Last Admin: 03/27/17 05:07 Dose: 40 mg Montelukast Sodium (Singulair) 10 mg PO DAILY [facility] Last Admin: 03/26/17 10:30 Dose: 10 mg Pantoprazole Sodium (Protonix Ec Tab) 40 mg PO DAILY [facility] Last Admin: 07/09/17 10:29 Dose: 40 mg Promethazine HCl (Phenergan Syrup) 12.5 mg PO Q6 PRN PRN Reason: Cough Last Admin: 03/25/17 22:42 Dose: 12.5 mg Rosuvastatin Calcium (Crestor) 10 mg PO Q48H [facility] Last Admin: 03/25/17 21:28 Dose: 10 mg Fluticasone/Salmeterol (Advair Diskus 250/50) 1 puff IH RQ12 [facility] Last Admin: 03/27/17 07:56 Dose: 1 puff Sucralfate (Carafate Tab) 1 gm PO QID [facility] Last Admin: 03/26/17 22:07 Dose: 1 gm Theophylline (Aristeo-24) 400 mg PO DAILY [facility] Last Admin: 03/26/17 12:30 Dose: 400 mg Zolpidem Tartrate (Ambien) 5 mg PO HS [facility] Last Admin: 03/26/17 23:03 Dose: 5 mg - Labs Labs: PT 11.2 SECONDS (9.7-12.2) 03/23/17 16:09 INR 1.0 03/23/17 16:09 APTT 31 SECONDS (21-34) 03/23/17 16:09 - Constitutional Appears: Well, No Acute Distress - Head Exam Head Exam: ATRAUMATIC, NORMAL INSPECTION, NORMOCEPHALIC - Eye Exam Eye Exam: EOMI, Normal appearance, PERRL Pupil Exam: NORMAL ACCOMODATION, PERRL - ENT Exam ENT Exam: Mucous Membranes Moist, Normal Exam - Neck Exam Neck Exam: Normal Inspection - Respiratory Exam Respiratory Exam: Clear to Ausculation Bilateral, NORMAL BREATHING PATTERN - Cardiovascular Exam Cardiovascular Exam: REGULAR RHYTHM, RRR, +S1, +S2, Murmur - GI/Abdominal Exam GI & Abdominal Exam: Soft, Normal Bowel Sounds - Rectal Exam Rectal Exam: Deferred - Extremities Exam Extremities Exam: Full ROM, Normal Capillary Refill - Back Exam Back Exam: NORMAL INSPECTION - Neurological Exam Neurological Exam: Alert, Awake, CN II-XII Intact - Psychiatric Exam Psychiatric exam: Normal Affect, Normal Mood - Skin Skin Exam: Normal Color Assessment and Plan (1) HTN (hypertension) Assessment & Plan: well controlled cont home bp meds re-evaluated in 4 weeks with BP diary Status: Chronic (2) Dyslipidemia Assessment & Plan: cont home regimen of fenofibrate and zetia check lipid NMR as outpt Status: Chronic (3) Sinus tachycardia Assessment & Plan: resolved 2' to copd Status: Acute
[2017-03-27] MEDS ORDERED: MethylPREDNISolone 40 mg Vial IVP SCH ×2 (10:00→22:00)
[2017-03-27] MEDS: Pantoprazole 40 mg EC Tab PO SCH (10:42)
[2017-03-27] MEDS: diltiaZEM 120 mg/24 Hours CD Cap PO SCH (10:43)
[2017-03-27] MEDS: Theophylline 200mg ER 24 hrs Cap PO SCH (10:46)
--- NOTE | 2017-03-27 14:39 | CP.PCM.PN ---
Subjective - Date & Time of Evaluation Date of Evaluation: 03/27/17 Time of Evaluation: 11:40 - Subjective Subjective: clinically same Objective - Vital Signs/Intake and Output Vital Signs (last 24 hours): Temp Pulse Resp BP Pulse Ox 97.4 F L 83 18 118/67 95 03/27/17 09:09 03/27/17 13:33 03/27/17 09:09 03/27/17 13:33 03/27/17 09:09 Intake and Output: 03/27/17 03/27/17 06:59 18:59 Intake Total 1440 Balance 1440 - Medications Medications: Current Medications Albuterol/Ipratropium (Duoneb 3 Mg/0.5 Mg (3 Ml) Ud) 3 ml INH RQ6 [facility] Last Admin: 03/27/17 07:56 Dose: 3 ml Cyclobenzaprine HCl (Flexeril) 10 mg PO HS [facility] Last Admin: 03/26/17 22:07 Dose: 10 mg Diltiazem HCl (Cardizem Cd) 120 mg PO DAILY [facility] Last Admin: 03/27/17 10:43 Dose: 120 mg Ergocalciferol (Drisdol 50,000 Intl Units Cap) 1 cap PO QWK [facility] Last Admin: 03/24/17 10:12 Dose: 1 cap Fenofibrate (Tricor) 145 mg PO HS [facility] Last Admin: 03/26/17 22:07 Dose: 145 mg Heparin Sodium (Porcine) (Heparin) 5,000 units SC Q12 [facility] Last Admin: 03/27/17 10:42 Dose: 5,000 units Azithromycin 500 mg/ Sodium (Chloride) 250 mls @ 250 mls/hr IVPB Q24H [facility] Last Admin: 03/26/17 19:20 Dose: 250 mls/hr Losartan Potassium (Cozaar) 50 mg PO DAILY [facility] Last Admin: 03/27/17 10:43 Dose: 50 mg Methylprednisolone (Solu-Medrol) 40 mg IVP Q12 [facility] Montelukast Sodium (Singulair) 10 mg PO DAILY [facility] Last Admin: 03/27/17 10:43 Dose: 10 mg Pantoprazole Sodium (Protonix Ec Tab) 40 mg PO DAILY [facility] Last Admin: 03/27/17 10:42 Dose: 40 mg Promethazine HCl (Phenergan Syrup) 12.5 mg PO Q6 PRN PRN Reason: Cough Last Admin: 03/25/17 22:42 Dose: 12.5 mg Rosuvastatin Calcium (Crestor) 10 mg PO Q48H [facility] Last Admin: 03/25/17 21:28 Dose: 10 mg Fluticasone/Salmeterol (Advair Diskus 250/50) 1 puff IH RQ12 [facility] Last Admin: 03/27/17 07:56 Dose: 1 puff Sucralfate (Carafate Tab) 1 gm PO QID [facility] Last Admin: 03/27/17 13:41 Dose: 1 gm Theophylline (Aristeo-24) 400 mg PO DAILY [facility] Last Admin: 03/27/17 10:46 Dose: 400 mg Zolpidem Tartrate (Ambien) 5 mg PO HS [facility] Last Admin: 03/26/17 23:03 Dose: 5 mg - Labs Labs: PT 11.2 SECONDS (9.7-12.2) 03/23/17 16:09 INR 1.0 03/23/17 16:09 APTT 31 SECONDS (21-34) 03/23/17 16:09 - Constitutional Appears: Well - Head Exam Head Exam: ATRAUMATIC, NORMAL INSPECTION, NORMOCEPHALIC - Eye Exam Eye Exam: EOMI, Normal appearance, PERRL Pupil Exam: NORMAL ACCOMODATION, PERRL - ENT Exam ENT Exam: Mucous Membranes Moist, Normal Exam - Neck Exam Neck Exam: Full ROM, Normal Inspection. absent: Lymphadenopathy - Respiratory Exam Respiratory Exam: Decreased Breath Sounds - Cardiovascular Exam Cardiovascular Exam: REGULAR RHYTHM, +S1, +S2 - GI/Abdominal Exam GI & Abdominal Exam: Soft, Diminished Bowel Sounds - Rectal Exam Rectal Exam: Deferred
--- NOTE | 2017-03-27 15:19 | CP.PCM.PN ---
Subjective - Date & Time of Evaluation Date of Evaluation: 03/27/17 Objective - Vital Signs/Intake and Output Vital Signs (last 24 hours): Temp Pulse Resp BP Pulse Ox 97.4 F L 83 18 118/67 95 03/27/17 09:09 03/27/17 13:33 03/27/17 09:09 03/27/17 13:33 03/27/17 09:09 Intake and Output: 03/27/17 03/27/17 06:59 18:59 Intake Total 1440 400 Balance 1440 400 - Medications Medications: Current Medications Albuterol/Ipratropium (Duoneb 3 Mg/0.5 Mg (3 Ml) Ud) 3 ml INH RQ6 [facility] Last Admin: 03/27/17 14:02 Dose: 3 ml Cyclobenzaprine HCl (Flexeril) 10 mg PO HS [facility] Last Admin: 03/26/17 22:07 Dose: 10 mg Diltiazem HCl (Cardizem Cd) 120 mg PO DAILY [facility] Last Admin: 03/27/17 10:43 Dose: 120 mg Ergocalciferol (Drisdol 50,000 Intl Units Cap) 1 cap PO QWK [facility] Last Admin: 03/24/17 10:12 Dose: 1 cap Fenofibrate (Tricor) 145 mg PO HS [facility] Last Admin: 03/26/17 22:07 Dose: 145 mg Heparin Sodium (Porcine) (Heparin) 5,000 units SC Q12 [facility] Last Admin: 03/27/17 10:42 Dose: 5,000 units Azithromycin 500 mg/ Sodium (Chloride) 250 mls @ 250 mls/hr IVPB Q24H [facility] Last Admin: 03/26/17 19:20 Dose: 250 mls/hr Losartan Potassium (Cozaar) 50 mg PO DAILY [facility] Last Admin: 03/27/17 10:43 Dose: 50 mg Methylprednisolone (Solu-Medrol) 40 mg IVP Q12 [facility]IN Montelukast Sodium (Singulair) 10 mg PO DAILY [facility] Last Admin: 03/27/17 10:43 Dose: 10 mg Pantoprazole Sodium (Protonix Ec Tab) 40 mg PO DAILY [facility] Last Admin: 03/27/17 10:42 Dose: 40 mg Promethazine HCl (Phenergan Syrup) 12.5 mg PO Q6 PRN PRN Reason: Cough Last Admin: 03/25/17 22:42 Dose: 12.5 mg Rosuvastatin Calcium (Crestor) 10 mg PO Q48H [facility] Last Admin: 03/25/17 21:28 Dose: 10 mg Fluticasone/Salmeterol (Advair Diskus 250/50) 1 puff IH RQ12 [facility] Last Admin: 03/27/17 07:56 Dose: 1 puff Sucralfate (Carafate Tab) 1 gm PO QID [facility] Last Admin: 03/27/17 13:41 Dose: 1 gm Theophylline (Aristeo-24) 400 mg PO DAILY [facility] Last Admin: 03/27/17 10:46 Dose: 400 mg Zolpidem Tartrate (Ambien) 5 mg PO HS [facility] Last Admin: 03/26/17 23:03 Dose: 5 mg - Labs Labs: PT 11.2 SECONDS (9.7-12.2) 03/23/17 16:09 INR 1.0 03/23/17 16:09 APTT 31 SECONDS (21-34) 03/23/17 16:09
[2017-03-27 16:12] VITALS: BP 117/67; PULSE 72; RESP 20; TEMP 98.2; O2SAT 94
--- NOTE | 2017-03-27 18:55 | CP.PCM.PN ---
Subjective - Date & Time of Evaluation Date of Evaluation: 03/27/17 Time of Evaluation: 18:49 - Subjective Subjective: PGY2 progress note for Dr. Mcpherson Pt is seen and examined at bedside. No acute events overnight. Patient states that she is breathing much better. Denies having any wheezing, CP, SOB, abd pain, N/V/D/C. Patient is tolerating diet and ambulating without difficulty around room. 12 point ROS are negative except for the above mentioned. Objective - Vital Signs/Intake and Output Vital Signs (last 24 hours): Temp Pulse Resp BP Pulse Ox 98.2 F 72 20 117/67 94 L 03/27/17 16:10 03/27/17 16:10 03/27/17 16:10 03/27/17 16:10 03/27/17 16:10 Intake and Output: 03/27/17 03/27/17 06:59 18:59 Intake Total 1440 400 Balance 1440 400 - Labs Labs: PT 11.2 SECONDS (9.7-12.2) 03/23/17 16:09 INR 1.0 03/23/17 16:09 APTT 31 SECONDS (21-34) 03/23/17 16:09 - Constitutional Appears: Non-toxic, No Acute Distress - Head Exam Head Exam: ATRAUMATIC - Eye Exam Eye Exam: EOMI - ENT Exam ENT Exam: Mucous Membranes Moist - Respiratory Exam Respiratory Exam: Clear to Ausculation Bilateral. absent: Accessory Muscle Use , Rales, Rhonchi, Wheezes, Respiratory Distress - Cardiovascular Exam Cardiovascular Exam: REGULAR RHYTHM, +S1, +S2. absent: Gallop, Rubs, Murmur - GI/Abdominal Exam GI & Abdominal Exam: Soft, Normal Bowel Sounds. absent: Distended, Firm, Guarding, Rigid, Tenderness, Organomegaly - Extremities Exam Extremities Exam: absent: Pedal Edema, Tenderness - Neurological Exam Neurological Exam: Alert, Awake, Oriented x3 - Psychiatric Exam Psychiatric exam: Normal Affect, Normal Mood - Skin Skin Exam: Dry, Intact, Normal Color, Warm Assessment and Plan - Assessment and Plan (Free Text) Assessment: 61 year old female with past medical history of HTN, COPD was admitted for COPD exacerbation. On admission, CXR showed mild venous congestion and mild patchy increased markings in medial right infrahilar region. Patient was afebrile on admission. Patient was started on IV steroids and antibiotics. Cardiology was consulted and recommended blood pressure control and cholesterol control. Patient's condition slowly improved and she was stable for discharge home. Patient is safe to be discharged home. Patient is to follow up with PMD, Dr. Mcpherson within 2 days of discharge. Patient is to continue home medications as prescribed. She is given refills for all of her medications. Patient is also discharged on the following medication: Prednisone 20 mg po qd for 5 days. If symptoms worsen, please return to ED.
== END 2017-03-27 18:45 | disposition home or self-care (01) | DRG 192 ==
LOC: C.ER 15:08 → C.6T 16:51
PROVIDERS: ADMIT Internal Medicine Nephrology; ATTEND Internal Medicine Nephrology
DX: J44.1 Chronic obstructive pulmonary disease with (acute) exacerbation (principal); I10 Essential (primary) hypertension; R00.0 Tachycardia, unspecified; J45.909 Unspecified asthma, uncomplicated; M19.90 Unspecified osteoarthritis, unspecified site; E78.5 Hyperlipidemia, unspecified; F32.9 Major depressive disorder, single episode, unspecified; Z77.22 Contact with and (suspected) exposure to environmental tobacco smoke (acute) (chronic); Z91.14 Patient's other noncompliance with medication regimen; Z86.73 Personal history of transient ischemic attack (TIA), and cerebral infarction without residual deficits; Z90.49 Acquired absence of other specified parts of digestive tract

== ENCOUNTER 2017-10-28 21:36 | Inpatient (IN) | payer MEDICARE ==
--- NOTE | 2017-10-28 22:04 | C.PDOC ---
History Of Present Illness 62 year old female presents to the ED c/o numbness of her left face and CP. Patient states that around 15:00 today she noticed numbness over he left face, she took baby Aspirin in the morning and also one after noticing the numbness over her left face. Patient reports she later developed a dull aching chest pain which has improved. Patient is speaking in complete sentences, denies fever , chills, nausea, vomit, diarrhea, headache, visual changes, weakness. Time Seen by Provider: 10/28/17 22:02 Chief Complaint (Nursing): Weakness/Neurological Deficit History Per: Patient History/Exam Limitations: no limitations Onset/Duration Of Symptoms: Hrs Current Symptoms Are (Timing): Still Present Associated Symptoms Preceding Syncopal Episode: No Predromal Symptoms (Sudden Onset) Seizure Or Post-ictal Symptoms: None Possible Causative Factor(s): Vertigo Fall Associated With With Symptoms: No Severity: Moderate Pain Scale Rating Of: 4 Recent travel outside of the [place]: No Additional History Per: Patient - Symptoms Of CVA Associated Symptoms: denies: Impaired Speech Recent Aspirin Use: Yes (Last Taken) (this morning) Current Coumadin Use?: No Recent Head Trauma: No Past Medical History Reviewed: Historical Data, Nursing Documentation, Vital Signs Vital Signs: Last Vital Signs Temp 97.9 F 10/28/17 21:53 Pulse 80 10/28/17 23:19 Resp 16 10/28/17 23:19 BP 130/73 10/28/17 23:19 Pulse Ox 98 10/28/17 23:19 - Medical History PMH: Arthritis, Asthma, COPD, CVA (1990), Depression, HTN Denies: CHF, HIV, Chronic Kidney Disease, Seizures, Sexually Transmitted Disease Surgical History: Appendectomy (AGE OF 7), Cholecystectomy (2015) - [facility] Procedures MEASURE OF CARDIAC SAMPL & PRESSURE, L HEART, PERC APPROACH (02/01/16) Family History: States: Unknown Family Hx - Social History Hx Tobacco Use: No Hx Alcohol Use: No Hx Substance Use: No - Immunization History Hx Tetanus Toxoid Vaccination: No Hx Influenza Vaccination: Yes Hx Pneumococcal Vaccination: Yes Review Of Systems Constitutional: Negative for: Fever, Chills Eyes: Negative for: Vision Change Cardiovascular: Positive for: Chest Pain Respiratory: Negative for: Cough, Shortness of Breath Gastrointestinal: Negative for: Nausea, Vomiting, Abdominal Pain Genitourinary: Negative for: Dysuria Musculoskeletal: Negative for: Back Pain Skin: Negative for: Rash Neurological: Positive for: Numbness (face left side). Negative for: Weakness, Headache, Dizziness Psych: Negative for: Anxiety Physical Exam - Physical Exam Appears: Non-toxic, No Acute Distress Skin: Warm, Dry Head: Normacephalic Eye(s): bilateral: PERRL, EOMI Nose: No Discharge, No Deformity Oral Mucosa: Moist, No Drooling Neck: Normal ROM, No Supple Chest: Symmetrical Cardiovascular: Rhythm Regular, No Murmur Respiratory: No Decreased Breath Sounds, No Rales, No Rhonchi, No Wheezing Gastrointestinal/Abdominal: Soft, No Tenderness, No Guarding, No Rebound Extremity: Normal ROM, No Tenderness, No Swelling Neurological/Psych: Oriented x3, Other (No focal deficits) Gait: Steady ED Course And Treatment - Laboratory Results Result Diagrams: 10/28/17 22:44 10/28/17 22:44 ECG: Interpreted By Me, Viewed By Sc ECG Rhythm: Sinus Rhythm (70), Nonspecific Changes O2 Sat by Pulse Oximetry: 96 (On RA) Pulse Ox Interpretation: Normal - Radiology CXR: Interpreted by Me, Viewed By Me CXR Interpretation: No: Infiltrates, Fracture, Pnemothorax - CT Scan/US CT head Other Rad Studies (CT/US): Read By Radiologist, Radiology Report Reviewed CT/US Interpretation: Addendum created by Carol Evans MD on 2017 10:43 PM Eastern Time ([place] & [place]). THIS REPORT CONTAINS FINDINGS THAT MAY BE CRITICAL TO PATIENT CARE. The findings. were verbally communicated via telephone conference with Miguel Gonzalez at 10:43 PM [facility] on. 10/28/2017. The findings were acknowledged and understood. Initial Report created on 10/28/2017 10:30 PM Eastern Time ([place] & [place]). EXAM: CT Head Without Intravenous Contrast. CLINICAL HISTORY: 62 years old, female; Signs and symptoms; Numbness / parasthesia; Left; Additional info: Code. stroke bed 5. TECHNIQUE: Axial computed tomography images of the head/brain without intravenous contrast. All CT scans at. this facility use one or more dose reduction techniques, viz.: automated exposure control; ma/kV. adjustment per patient size (including targeted exams where dose is matched to indication; i.e. head); . or iterative reconstruction technique. Coronal and sagittal reformatted images were created and reviewed. COMPARISON: No relevant prior studies available. FINDINGS: Brain: Mild chronic white matter disease, likely microangiopathic. Punctate age-indeterminate left. basal ganglia lacunar infarct versus perivascular space. No hemorrhage. Ventricles: Unremarkable. No ventriculomegaly. Bones/joints: Unremarkable. No acute fracture. Soft tissues : Unremarkable. Sinuses: Minimal mucosal thickening. No acute sinusitis. Mastoid air cells: Unremarkable as visualized. No mastoid effusion. IMPRESSION : No major vascular territory infarct, hemorrhage or mass effect. Punctate age -indeterminate left basal ganglia lacunar infarct versus perivascular space. __ . EXAM: CT Maxillofacial Without Intravenous Contrast. CLINICAL HISTORY: 62 years old, female; Signs and symptoms; Numbness / parasthesia; Left; Additional info: Code. stroke bed 5. TECHNIQUE: Axial computed tomography images of the face without intravenous contrast. All CT scans at this. facility use one or more dose reduction techniques, viz.: automated exposure control; ma/kV. adjustment per patient size (including targeted exams where dose is matched to indication; i.e. head); . or iterative reconstruction technique. COMPARISON: No relevant prior studies available. FINDINGS: Bones/joints: No acute fracture. Soft tissues: Unremarkable. Orbits: Unremarkable. Sinuses: Minimal mucosal thickening of the ethmoid air cells. No air-fluid levels. IMPRESSION: No acute findings. Progress Note: 10:[address] castellanos. Pt not a tpa candidate. Will do ct/ cta, asa and telemetry admission NIHSS Stroke Scale 2 - Date/Time Evaluation Performed Date Performed: 10/28/17 Time Performed: 21:55 When Was NIHSS Performed: Baseline - How Severe is the Stroke Level of Consciousness: 0=Alert LOC to Questions: 0=Both comments correct LOC to commands: 0=Obeys both correctly Best Gaze: 0=Normal Visual: 0=No visual loss Facial: 0=Normal Motor Arm - Left: 0=No drift Motor Arm - Right: 0=No drift Motor Leg - Left: 0=No drift Motor Leg - Right: 0=No drift Limb Ataxia: 0=Absent Sensory: 0=Normal Best Language: 0=No aphasia Dysarthia: 0=Normal articulation Extinction & Inattention (Neglect): 0=Normal, no object Score: 0 Disposition Discussed With : Heidi Mcpherson Comment: accepted the pt on his service and took over the care at 12AM Doctor Will See Patient In The: Hospital Counseled Patient/Family Regarding: Studies Performed, Diagnosis - Disposition Disposition: HOSPITALIZED Disposition Time: 00:01 Condition: FAIR Forms: [facility] (Croatian) - POA Present On Arrival: None - Clinical Impression Clinical Impression: Chest pain, Left facial numbness - Scribe Statement The provider has reviewed the documentation as recorded by the Scribe Jaime Jones All medical record entries made by the Scribe were at my direction and personally dictated by me. I have reviewed the chart and agree that the record accurately reflects my personal performance of the history, physical exam, medical decision making, and the department course for this patient. I have also personally directed, reviewed, and agree with the discharge instructions and disposition. Decision To Admit - Pt Status Changed To: Hospital Disposition Of: Inpatient - Admit Certification Admit to Inpatient:: After my assessment, the patient will require hospitalization for at least two midnights. This is because of the severity of symptoms shown, intensity of services needed, and/or the medical risk in this patient being treated as an outpatient. - InPatient: Physician Admission Certification: I certify that this patient requires 2 or more midnights of care for the following reason:: After my assessment, the patient will require hospitalization for at least two midnights. This is because of the severity of symptoms shown, intensity of services needed, and/or the medical risk in this patient being treated as an outpatient. - . Bed Request Type: Telemetry Admitting Physician: Heidi Mcpherson Patient Diagnosis: Chest pain, Left facial numbness
[2017-10-28 22:47] LABS: BASO % 0.7 % (0.0-2.0); EOS # 0.3 K/uL (0.0-0.7); EOS % 5.7 % (0.0-4.0); HEMOGLOBIN 11.8 g/dL (11.0-16.0); LYMPH # 1.9 K/uL (1.0-4.3); LYMPH % 33.9 % (20.0-40.0); MEAN CELL VOLUME 89.1 fL (81.0-99.0); MEAN CORPUSCULAR HEMOGLOBIN 30.7 pg (27.0-31.0); MEAN CORPUSCULAR HGB CONC 34.4 g/dL (33.0-37.0); MEAN PLATELET VOLUME 8.4 fL (7.2-11.7); MONO # 0.6 K/uL (0.0-0.8); MONO % 10.7 % (0.0-10.0); NEUT # 2.8 K/uL (1.8-7.0); RBC 3.85 Mil/uL (3.80-5.20); WHITE BLOOD COUNT 5.7 K/uL (4.8-10.8)
[2017-10-28 22:56] LABS: PROTHROMBIN TIME 11.2 SECONDS (9.7-12.2)
[2017-10-28 23:00] LABS: ALB/GLOB RATIO 1.2 (1.0-2.1); ALBUMIN 3.9 g/dL (3.5-5.0); ALT/SGPT 27 U/L (9-52); AST/SGOT 21 U/L (14-36); BLOOD UREA NITROGEN 19 mg/dL (7-17); CALCIUM 8.6 mg/dl (8.6-10.4); GFR AFRICAN-AMERICAN > 60; GFR NON-AFRICAN AMERICAN > 60; HDL CHOLESTEROL 65 mg/dL (30-70)
[2017-10-28 23:11] LABS: LDL CHOLESTEROL 166 mg/dL (0-129)
--- NOTE | 2017-10-29 00:21 | CT ---
EXAM: CT Angiography Head With Intravenous Contrast CLINICAL HISTORY: 62 years old, female; Signs and symptoms; Weakness; Additional info: Numbness TECHNIQUE: Axial computed tomographic angiography images of the head with intravenous contrast using CT angiography protocol. All CT scans at this facility use one or more dose reduction techniques, viz.: automated exposure control; ma/kV adjustment per patient size (including targeted exams where dose is matched to indication; i.e. head); or iterative reconstruction technique. MIP reconstructed images were created and reviewed. Coronal and sagittal reformatted images were created and reviewed. CONTRAST: 100 mL of [id number] administered intravenously. COMPARISON: No relevant prior studies available. FINDINGS: Right internal carotid artery: No acute findings. Intracranial segment is patent with no significant stenosis. No aneurysm. Right anterior cerebral artery: Unremarkable. No occlusion or significant stenosis. No aneurysm. Right middle cerebral artery: Unremarkable. No occlusion or significant stenosis. No aneurysm. Left internal carotid artery: No acute findings. Intracranial segment is patent with no significant stenosis. No aneurysm. Left anterior cerebral artery: Unremarkable. No occlusion or significant stenosis. No aneurysm. Left middle cerebral artery: Unremarkable. No occlusion or significant stenosis. No aneurysm. Basilar artery: Unremarkable. No occlusion or significant stenosis. No aneurysm. Right posterior cerebral artery: Unremarkable. No occlusion or significant stenosis. No aneurysm. Left posterior cerebral artery: There is a segment of moderate focal stenosis in the left posterior cerebral artery. Please note that 3-D reconstructions were not provided. IMPRESSION: Short segment moderate stenosis left posterior cerebral artery. Please note that 3-D reconstructions were not provided. EXAM: CT Angiography Neck With Intravenous Contrast EXAM DATE/TIME: 10/28/2017 10:08 PM CLINICAL HISTORY: 62 years old, female; Signs and symptoms; Weakness; Additional info: Numbness TECHNIQUE: Axial computed tomographic angiography images of the neck with intravenous contrast using CT angiography protocol. All CT scans at this facility use one or more dose reduction techniques, viz.: automated exposure control; ma/kV adjustment per patient size (including targeted exams where dose is matched to indication; i.e. head); or iterative reconstruction technique. MIP reconstructed images were created and reviewed. Coronal and sagittal reformatted images were created and reviewed. CONTRAST: 100 mL of [id number] administered intravenously. COMPARISON: CT - HEAD W/O (CODE STROKE) 2017-10-28 22:08 FINDINGS: The common carotid and internal carotid arteries are normal bilaterally without evidence of occlusion or dissection. The vertebral arteries are normal bilaterally without evidence of occlusion or dissection. The airway is patent. The soft tissues are normal. The osseous structures are normal. IMPRESSION: No acute findings.
[2017-10-29 07:02] LABS: CK-MB 1.09 ng/mL (0.0-3.38)
--- NOTE | 2017-10-29 08:51 | RAD ---
HISTORY: cp COMPARISON: Chest x-ray performed 03/23/17 TECHNIQUE: Chest, one view. FINDINGS: Examination limited by habitus. LUNGS: Biapical pleural thickening. Mild pulmonary venous congestion. Please note that chest x-ray has limited sensitivity for the detection of pulmonary masses. PLEURA: No significant pleural effusion identified. No definite pneumothorax . CARDIOVASCULAR: Heart size appears within normal limits. OSSEOUS STRUCTURES: No acute osseous abnormality identified. VISUALIZED UPPER ABDOMEN: Unremarkable. OTHER FINDINGS: None. IMPRESSION: Biapical pleural thickening. Mild pulmonary venous congestion.
--- NOTE | 2017-10-29 09:39 | CT ---
PROCEDURE: CT HEAD WITHOUT CONTRAST. HISTORY: code stroke bed 5 COMPARISON: Noncontrast head CT performed 03/16/14 TECHNIQUE: Axial computed tomography images were obtained through the head/brain without intravenous contrast. Radiation dose: Total exam DLP = 828.80 mGy-cm. This CT exam was performed using one or more of the following dose reduction techniques: Automated exposure control, adjustment of the mA and/or kV according to patient size, and/or use of iterative reconstruction technique. FINDINGS: HEMORRHAGE: No intracranial hemorrhage. BRAIN: No mass effect or edema. Punctate age indeterminate left basal ganglia lacunar infarct versus prominent perivascular space. Mild scattered periventricular and subcortical white matter hypodensities, which are nonspecific, but often seen with chronic microvascular ischemic disease. Please note that MRI with diffusion imaging is more sensitive in the detection of acute ischemic event. VENTRICLES: No hydrocephalus. CALVARIUM: Unremarkable. PARANASAL SINUSES: Mild mucosal thickening of the ethmoid air cells. Otherwise unremarkable. MASTOID AIR CELLS: Unremarkable as visualized. No inflammatory changes. OTHER FINDINGS: None. IMPRESSION: Nonspecific white matter changes. Age indeterminate left basal ganglia lacunar infarct versus prominent prevascular space. Preliminary impression was provided by virtual radiologic.
[2017-10-29] MEDS: Enoxaparin 40 mg Syringe SC SCH (09:53)
[2017-10-29] MEDS ORDERED: Pantoprazole 40 mg EC Tab PO SCH (10:00)
--- NOTE | 2017-10-29 14:41 | CP.PCM.CON ---
History of Present Illness - History of Present Illness History of Present Illness: CC: facial numbness tachycardia HPI; 62 year old female with following chronic medical conditions 1. ASHD 2. cerebrovascular disase 3. HTN She is reporting one day onset of left facial numbness, this progressed to chest pressure. Occured at rest. In the ER she was noted to have bursts of tachycardia, the ER staff was unable to make a diagnosis and there is no record available to me now. She reports palpations in the last several weeks and was started on cardizem Review of Systems - Review of Systems All systems: reviewed and no additional remarkable complaints except Past Patient History - Infectious Disease Hx of Infectious Diseases: None - Past Medical History & Family History Past Medical History?: Yes - Past Social History Smoking Status: Never Smoked - CARDIAC Hx Congestive Heart Failure: No Hx Hypertension: Yes - PULMONARY Hx Asthma: Yes Hx Chronic Obstructive Pulmonary Disease (COPD): Yes - NEUROLOGICAL Hx Seizures: No - RENAL Hx Chronic Kidney Disease: No - ENDOCRINE/METABOLIC Hx Diabetes Mellitus Type 2: No - HEMATOLOGICAL/ONCOLOGICAL Hx Human Immunodeficiency Virus (HIV): No - INTEGUMENTARY Hx Dermatological Problems: No - MUSCULOSKELETAL/RHEUMATOLOGICAL Hx Arthritis: Yes Hx Falls: No - GASTROINTESTINAL Hx Gastrointestinal Disorders: No - GENITOURINARY/GYNECOLOGICAL Hx Sexually Transmitted Disorders: No - PSYCHIATRIC Hx Depression: Yes Hx Substance Use: No - SURGICAL HISTORY Hx Appendectomy: Yes (AGE OF 7) Hx Cholecystectomy: Yes (2014) - ANESTHESIA Hx Anesthesia: Yes Hx Anesthesia Reactions: No Hx Malignant Hyperthermia: No Meds Allergies/Adverse Reactions: Allergies Allergy/AdvReac Type Severity Reaction Status Date / Time No Known Allergies Allergy Verified 03/23/17 15:13 - Medications Medications: Current Medications Aspirin (Aspirin Chewable) 81 mg PO DAILY [facility] Last Admin: 10/29/17 09:53 Dose: 81 mg Enoxaparin Sodium (Lovenox) 40 mg SC DAILY [facility] Last Admin: 10/29/17 09:53 Dose: 40 mg Fenofibrate (Tricor) 48 mg PO QPM [facility] Losartan Potassium (Cozaar) 25 mg PO DAILY [facility] Pantoprazole Sodium (Protonix Ec Tab) 40 mg PO DAILY [facility] Last Admin: 10/29/17 09:53 Dose: 40 mg Rosuvastatin Calcium (Crestor) 10 mg PO HS [facility] Results - Vital Signs Recent Vital Signs: Last Vital Signs Temp 97.9 F 10/28/17 21:53 Pulse 73 10/29/17 10:06 Resp 14 10/29/17 09:53 BP 159/79 H 10/29/17 09:53 Pulse Ox 95 10/29/17 09:53 - Labs Result Diagrams: 10/28/17 22:44 10/28/17 22:44 Labs: Laboratory Results - last 24 hr 10/28/17 10/28/17 10/28/17 22:44 22:44 22:44 WBC 5.7 RBC 3.85 Hgb 11.8 Hct 34.3 MCV 89.1 MCH 30.7 MCHC 34.4 RDW 13.0 Plt Count 257 MPV 8.4 Neut % (Auto) 49.0 L Lymph % (Auto) 33.9 [place] % (Auto) 10.7 H Eos % (Auto) 5.7 H Baso % (Auto) 0.7 Neut # (Auto) 2.8 Lymph # (Auto) 1.9 [place] # (Auto) 0.6 Eos # (Auto) 0.3 Baso # (Auto) 0.0 PT 11.2 INR 1.0 APTT 30 Sodium 136 Potassium 3.5 L Chloride 97 L Carbon Dioxide 29 Anion Gap 13 BUN 19 H Creatinine 0.6 L Est GFR ( Amer) > 60 Est GFR (Non-Af Amer) > 60 Random Glucose 98 Hemoglobin A1c Calcium 8.6 Total Bilirubin 0.5 AST 21 ALT 27 Alkaline Phosphatase 79 Total Creatine Kinase CK-MB (Mass) Troponin I < 0.0120 Total Protein 7.1 Albumin 3.9 Globulin 3.2 Albumin/Globulin Ratio 1.2 Triglycerides 203 H Cholesterol 260 H LDL Cholesterol Direct 166 H HDL Cholesterol 65 Blood Type Antibody Screen 10/28/17 10/28/17 10/29/17 22:44 22:44 06:34 WBC RBC Hgb Hct MCV MCH MCHC RDW Plt Count MPV Neut % (Auto) Lymph % (Auto) [place] % (Auto) Eos % (Auto) Baso % (Auto) Neut # (Auto) Lymph # (Auto) [place] # (Auto) Eos # (Auto) Baso # (Auto) PT INR APTT Sodium Potassium Chloride Carbon Dioxide Anion Gap BUN Creatinine Est GFR ( Amer) Est GFR (Non-Af Amer) Random Glucose Hemoglobin A1c 5.2 Calcium Total Bilirubin AST ALT Alkaline Phosphatase Total Creatine Kinase 65 CK-MB (Mass) 1.09 Troponin I < 0.0120 Total Protein Albumin Globulin Albumin/Globulin Ratio Triglycerides Cholesterol LDL Cholesterol Direct HDL Cholesterol Blood Type O POSITIVE Antibody Screen Negative - EKG Data EKG Interpreted by: Myself EKG shows normal: Sinus rhythm Rate: Normal - Imaging and Cardiology Chest x-ray Status: Image reviewed by me (No infiltrates or effusions) Assessment & Plan - Assessment and Plan (Free Text) Assessment: 62 year old female with atypical chest pain, check serial trop and EKG to rule out ME Palpitations suspicious for afib, continue telemetry, metoprolol 25mg po q6h Acute CVA - Neurology work up pending HTN is chronic and stable ASHD - high dose statin, asprin
--- NOTE | 2017-10-29 15:45 | CP.PCM.CON ---
History of Present Illness - History of Present Illness History of Present Illness: CONSULTATION DICTATED NEW RIGHT SUBCORTICAL DYSFUNCTON ASA FAILURE POOR CONTROL ON HER LIPIDS SWITCH TO PLAVIX ARB FENOFIBRATE AND CRESTOR MRI/CAROTID/ECHO AND EEG Past Patient History - Infectious Disease Hx of Infectious Diseases: None - Past Medical History & Family History Past Medical History?: Yes - Past Social History Smoking Status: Never Smoked - CARDIAC Hx Congestive Heart Failure: No Hx Hypertension: Yes - PULMONARY Hx Asthma: Yes Hx Chronic Obstructive Pulmonary Disease (COPD): Yes - NEUROLOGICAL Hx Seizures: No - RENAL Hx Chronic Kidney Disease: No - ENDOCRINE/METABOLIC Hx Diabetes Mellitus Type 2: No - HEMATOLOGICAL/ONCOLOGICAL Hx Human Immunodeficiency Virus (HIV): No - INTEGUMENTARY Hx Dermatological Problems: No - MUSCULOSKELETAL/RHEUMATOLOGICAL Hx Arthritis: Yes Hx Falls: No - GASTROINTESTINAL Hx Gastrointestinal Disorders: No - GENITOURINARY/GYNECOLOGICAL Hx Sexually Transmitted Disorders: No - PSYCHIATRIC Hx Depression: Yes Hx Substance Use: No - SURGICAL HISTORY Hx Appendectomy: Yes (AGE OF 7) Hx Cholecystectomy: Yes (2014) - ANESTHESIA Hx Anesthesia: Yes Hx Anesthesia Reactions: No Hx Malignant Hyperthermia: No Meds Allergies/Adverse Reactions: Allergies Allergy/AdvReac Type Severity Reaction Status Date / Time No Known Allergies Allergy Verified 03/23/17 15:13 - Medications Medications: Current Medications Aspirin (Aspirin Chewable) 81 mg PO DAILY [facility] Last Admin: 10/29/17 09:53 Dose: 81 mg Enoxaparin Sodium (Lovenox) 40 mg SC DAILY [facility] Last Admin: 10/29/17 09:53 Dose: 40 mg Fenofibrate (Tricor) 48 mg PO QPM [facility] Losartan Potassium (Cozaar) 25 mg PO DAILY [facility] Pantoprazole Sodium (Protonix Ec Tab) 40 mg PO DAILY [facility] Last Admin: 10/29/17 09:53 Dose: 40 mg Rosuvastatin Calcium (Crestor) 10 mg PO HS [facility] Results - Vital Signs Recent Vital Signs: Last Vital Signs Temp 98.3 F 10/29/17 14:40 Pulse 76 10/29/17 14:40 Resp 18 10/29/17 14:40 BP 130/77 10/29/17 14:40 Pulse Ox 95 10/29/17 14:40 - Labs Result Diagrams: 10/28/17 22:44 10/28/17 22:44 Labs: Laboratory Results - last 24 hr 0210/28/17 10/28/17 22:44 22:44 22:44 WBC 5.7 RBC 3.85 Hgb 11.8 Hct 34.3 MCV 89.1 MCH 30.7 MCHC 34.4 RDW 13.0 Plt Count 257 MPV 8.4 Neut % (Auto) 49.0 L Lymph % (Auto) 33.9 Kern % (Auto) 10.7 H Eos % (Auto) 5.7 H Baso % (Auto) 0.7 Neut # (Auto) 2.8 Lymph # (Auto) 1.9 Kern # (Auto) 0.6 Eos # (Auto) 0.3 Baso # (Auto) 0.0 PT 11.2 INR 1.0 APTT 30 Sodium 136 Potassium 3.5 L Chloride 97 L Carbon Dioxide 29 Anion Gap 13 BUN 19 H Creatinine 0.6 L Est GFR ( Amer) > 60 Est GFR (Non-Af Amer) > 60 Random Glucose 98 Hemoglobin A1c Calcium 8.6 Total Bilirubin 0.5 AST 21 ALT 27 Alkaline Phosphatase 79 Total Creatine Kinase CK-MB (Mass) Troponin I < 0.0120 Total Protein 7.1 Albumin 3.9 Globulin 3.2 Albumin/Globulin Ratio 1.2 Triglycerides 203 H Cholesterol 260 H LDL Cholesterol Direct 166 H HDL Cholesterol 65 Blood Type Antibody Screen 10/28/17 10/28/17 10/29/17 22:44 22:44 06:34 WBC RBC Hgb Hct MCV MCH MCHC RDW Plt Count MPV Neut % (Auto) Lymph % (Auto) Kern % (Auto) Eos % (Auto) Baso % (Auto) Neut # (Auto) Lymph # (Auto) Kern # (Auto) Eos # (Auto) Baso # (Auto) PT INR APTT Sodium Potassium Chloride Carbon Dioxide Anion Gap BUN Creatinine Est GFR ( Amer) Est GFR (Non-Af Amer) Random Glucose Hemoglobin A1c 5.2 Calcium Total Bilirubin AST ALT Alkaline Phosphatase Total Creatine Kinase 65 CK-MB (Mass) 1.09 Troponin I < 0.0120 Total Protein Albumin Globulin Albumin/Globulin Ratio Triglycerides Cholesterol LDL Cholesterol Direct HDL Cholesterol Blood Type O POSITIVE Antibody Screen Negative
[2017-10-29 20:59] LABS: CK-MB 0.86 ng/mL (0.0-3.38)
[2017-10-29 21:02] LABS: FREE T4 1.03 ng/dL (0.78-2.19)
[2017-10-29 21:53] LABS: FOLATE 15.6 ng/mL
[2017-10-29] MEDS ORDERED: Potassium Chloride 20 mEq ER Tab PO STA (22:08)
[2017-10-29] MEDS ORDERED: Albuterol HFA 90 mcg/actuation (8 g) INH PRN (22:09)
[2017-10-29] MEDS ORDERED: Promethazine 12.5 mg/10 ml Syrup PO PRN (22:09)
[2017-10-29] MEDS ORDERED: Ergocalciferol 50,000 Intl Units Cap PO SCH (22:15)
--- NOTE | 2017-10-30 03:00 | CON ---
DATE: 10/29/2017 ATTENDING PHYSICIAN: Dr. Joaquin Mcpherson. LOCATION: Room #657, bed A. REASON FOR CONSULTATION: Transient ischemic attack. CHIEF COMPLAINT: The patient was brought in to [facility] with a history of episode of left-sided facial numbness. From neurological point of view, I was called into evaluate her for further management. HISTORY OF PRESENTING ILLNESS: Ms. Elizabeth Rapp is a 62-year-old right-handed [place]-speaking female, usual state of health around 3:00 p.m. yesterday while she was watching TV, abrupt onset of chest pain with left facial numbness. Because of the persistent of the numbness, the patient decided to come to the hospital for further management. The patient also had a history of mini stroke which manifested with left-sided weakness more than 15 years ago which was resolved in a week. At present she denies visual or bulbar dysfunction. However, the facial numbness been resolved about 50%, still her facial numbness is present. No history of double vision. No history of problem in swallow. No history of facial sensory dysfunction. She could able to move both upper and lower extremities against the gravity. PAST MEDICAL HISTORY: Stroke, dyslipidemia, hypercholesterolemia, insomnia, gastroesophageal reflux disease. PERSONAL HISTORY: Denies smoking or alcohol use. ALLERGIES: NO KNOWN ALLERGIES. REVIEW OF SYSTEMS: A 12-point system been reviewed from neuro left facial numbness. MEDICATIONS: Aspirin, albuterol, losartan, fenofibrate, diltiazem, zolpidem, sucralfate, omeprazole. PHYSICAL EXAMINATION: VITAL SIGNS: Blood pressure 130/77, mean arterial pressure of 94, respiration 16, temperature afebrile. NECK: Supple. No carotid bruit. HEART: Sounds regular. CHEST: Fair air entry. EXTREMITIES: No edema in legs. NEUROLOGIC: Mental status examination, she is awake, alert and oriented to person, place and time. Speech is clear. Naming, repetition, fluency, comprehension all within normal. Cranial nerve examination, visual field intact. Pupils reactive to light. Extraocular movement normal. No nystagmus. No facial sensory deficit. No facial asymmetry. Hearing is normal. Tongue is midline. Good gag. Motor examination, outstretched hand with eyes closed, no drift noted. Power is symmetric on either side. Deep tendon reflexes, biceps, brachialis, triceps 1+ both knees are 1+, both ankles are absent. Plantars are upgoing on the left side, right side was downgoing. Sensory examination grossly intact. No cortical sensory loss. Coordination, lcmbra-loct-[id number] test is intact. Gait is normal. WORKUP: CT of the head does not show any radiological evidence of new stroke process. EKG normal sinus rhythm. BLOOD WORKUP: WBC 5.7, hemoglobin 11.8, hematocrit was 34.3, platelet 257. PT 11.2, INR 1.0, PTT 30. Sodium 136, potassium 3.5, chloride 97, bicarbonate 29, BUN 19, creatinine 0.3, GFR more than 60. Triglyceride 203, cholesterol 260, LDL 166, HDL 65. CONCLUSION: Ms. Elizabeth Rapp has been presenting with as per neurological examination, possible right subcortical dysfunction manifesting as left facial sensory dysfunction. Her mild asymmetric reflexes is probably from her old right cerebral ischemic process. 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 RECOMMENDATIONS: 1. The patient is recommended to have MRI of the brain to rule out any ischemic process. 2. Carotid Doppler/echocardiogram/EEG to rule out any seizure activities or any cardioembolic phenomena to explain her ischemic process. 3. The patient failed with aspirin, I would like to suggest to switch aspirin to Plavix. 4. The patient should be on statin and angiotensin receptor blockers with Plavix. 5. The patient workup is scheduled if the patient is stable for next 24 hours. The patient can be discharged and should have followup visit as outpatient. Mickey Badillo MD
[2017-10-30] MEDS: Fluticasone-Salmeterol 250-50mcg Diskus IH SCH ×2 (09:39→19:26)
[2017-10-30] MEDS ORDERED: diltiaZEM 240 mg/24 Hours CD Cap PO SCH (10:00)
[2017-10-30] MEDS ORDERED: Pantoprazole 20 mg EC Tab PO SCH (10:00)
--- NOTE | 2017-10-30 11:23 | PN ---
DATE: 10/30/2017. TIME OF EVALUATION: 6:40 a.m. NEUROLOGICAL PROBLEM: Possible right subcortical transient ischemic attack. PHYSICAL EXAMINATION: VITAL SIGNS: Blood pressure 144/84, mean arterial pressure 104, respiratory rate 16, temperature afebrile. NECK: Supple. No carotid bruits. HEART: Sounds regular. CHEST: Fair air entry. EXTREMITIES: No edema in legs. NEUROLOGICAL EXAMINATION: Cranial nerve examination, all within normal. Her subjective left facial numbness all gone at present. Motor examination, mild drift noted over the left upper extremity on outstretched hand with eyes closed, which is unchanged to compare with my yesterday's exam. Rest of the examination is unchanged. RECOMMENDATIONS: 1. The patient is scheduled to have MRI of the brain today to rule out any ischemic process. 2. The patient is scheduled to have electroencephalogram as well to rule out focal seizures. 3. The patient should maintain the blood pressure, mean arterial pressure around 100. 4. The patient will be followed closely with you. Mickey Badillo MD
[2017-10-30] MEDS: Enoxaparin 40 mg Syringe SC SCH (11:47)
[2017-10-30] MEDS: diltiaZEM 120 mg/24 Hours CD Cap PO SCH (12:39)
--- NOTE | 2017-10-30 14:09 | MRI ---
PROCEDURE: MRI of brain dated 08/29/2018. HISTORY: Stroke. COMPARISON: Comparison made with prior CT scan brain and CTA brain both dated 10/28/2017. TECHNIQUE: Multiplanar, multisequence MR images of the brain were obtained without intravenous contrast enhancement. FINDINGS: HEMORRHAGE: No no acute parenchymal, subarachnoid or extra-axial hemorrhage. [place] DWI: No evidence of an acute or early subacute infarction. BRAIN PARENCHYMA: Mild chronic periventricular white matter ischemic changes (most pronounced and conspicuous in the parieto-occipital regions bilaterally) with a few tiny chronic appearing with tiny lacunar-type infarcts scattered about the deep and subcortical white matter both cerebral hemispheres. No obvious parenchymal nor extra-axial masses or collections seen on this noncontrast study. Ventricular and sulcal size are within range of normal this patient's stated age. VENTRICLES: No obstructive hydrocephalus. CRANIUM: Un calvarium appears grossly intact. ORBITS: Orbits and contents appear grossly unremarkable. PARANASAL SINUSES/MASTOIDS: Clear VASCULAR SYSTEM: The visualized major vascular flow voids at skull base patent. OTHER FINDINGS: None. IMPRESSION: No acute intracranial hemorrhage. Minor chronic periventricular white matter ischemic changes as above. .
--- NOTE | 2017-10-30 14:36 | CARD ---
APPROVED REPORT EKG Measurement Heart [id number] <Conclusion> Normal sinus rhythm Normal ECG
--- NOTE | 2017-10-30 15:44 | VASCLAB ---
PROCEDURE: HISTORY: Facial numbness COMPARISON: None available. TECHNIQUE: Grayscale and duplex Doppler evaluation of the cervical carotid and vertebral arteries were performed. The common carotid, carotid bifurcations and cervical Internal Carotid Artery (ICA) and proximal External Carotid Artery (ECA) were evaluated. The vertebral arteries were evaluated for gross patency and flow direction. Report prepared by Leland Nassar, BS, RVT FINDINGS: RIGHT CAROTID ARTERIES: 1. Common Carotid Artery: No significant focal plaque formation of the right common carotid artery. Maximum Peak Systolic velocity: 91 cm/sec: End-diastolic velocity 32 cm/sec. 2. Carotid Bifurcation: No significant plaque formation. Maximum Peak Systolic velocity: 88 cm/sec: End-diastolic velocity 28 cm/sec. 3. Internal Carotid Artery: No significant plaque formation Plaque description: 3.1. Proximal Segment: Peak systolic velocity 79 cm/sec: End-diastolic velocity 32 cm/sec - % stenosis 0-15% 3.2. Middle Segment: Peak systolic velocity 52 cm/sec: End-diastolic velocity 24 cm/sec - % stenosis 0-15% 3.3. Distal Segment: Peak systolic velocity 88 cm/sec: End-diastolic velocity 39 cm/sec - % stenosis 0-15% 4. External Carotid Artery: No significant focal plaque formation. Peak systolic velocity 102 cm/sec 5. ICA/CCA Ratio: 1.0 LEFT CAROTID ARTERIES: 1. Common Carotid Artery: No significant focal plaque formation of the left common carotid artery. Maximum Peak Systolic velocity: 104 cm/sec: End-diastolic velocity 33 cm/sec. 2. Carotid Bifurcation: No significant plaque formation. Maximum Peak Systolic velocity: 86 cm/sec: End-diastolic velocity 26 cm/sec. 3. Internal Carotid Artery: No significant plaque formation Plaque description: 3.1. Proximal Segment: Peak systolic velocity 102 cm/sec: End-diastolic velocity 36 cm/sec - % stenosis 0-15% 3.2. Middle Segment: Peak systolic velocity 61 cm/sec: End-diastolic velocity 21 cm/sec - % stenosis 0-15% 3.3. Distal Segment: Peak systolic velocity 78 cm/sec: End-diastolic velocity 31 cm/sec - % stenosis 0-15% 4. External Carotid Artery: No significant focal plaque formation. Peak systolic velocity 83 cm/sec 5. ICA/CCA Ratio: 1.0 VERTEBRAL ARTERIES: 1. Right Vertebral Artery: The right vertebral artery flow direction is antegrade. 2. Left Vertebral Artery: The left vertebral artery flow direction is antegrade. OTHER FINDINGS: 1. Right Brachial Blood pressure: 158 mmHg. 2. Left Brachial Blood pressure: 140 mmHg. IMPRESSION: RIGHT: Duplex scan does not suggest hemodynamically significant stenosis of the right extracranial carotid arteries. LEFT: Duplex scan does not suggest hemodynamically significant stenosis of the left extracranial carotid arteries.
[2017-10-30 16:15] VITALS: RESP 20
--- NOTE | 2017-10-30 19:34 | CP.PCM.PN ---
Subjective - Date & Time of Evaluation Date of Evaluation: 10/30/17 Time of Evaluation: 11:20 - Subjective Subjective: clinically same Objective - Vital Signs/Intake and Output Vital Signs (last 24 hours): Temp Pulse Resp BP Pulse Ox 97.9 F 86 20 128/78 96 10/30/17 15:00 10/30/17 19:28 10/30/17 15:00 10/30/17 15:00 10/30/17 15:00 - Medications Medications: Current Medications Albuterol (Ventolin Hfa 90 Mcg/Actuation (8 G)) 1 puff INH RQ6 PRN PRN Reason: Shortness of Breath Clopidogrel Bisulfate (Plavix) 75 mg PO DAILY [facility] Last Admin: 10/30/17 11:47 Dose: 75 mg Diltiazem HCl (Cardizem Cd) 120 mg PO DAILY [facility] Last Admin: 10/30/17 12:39 Dose: 120 mg Enoxaparin Sodium (Lovenox) 40 mg SC DAILY [facility] Last Admin: 10/30/17 11:47 Dose: 40 mg Ergocalciferol (Drisdol 50,000 Intl Units Cap) 1 cap PO QD7 [facility] Famotidine (Pepcid) 40 mg PO DAILY [facility] Last Admin: 10/30/17 11:42 Dose: 40 mg Fenofibrate (Tricor) 145 mg PO DAILY [facility] Last Admin: 10/30/17 12:33 Dose: 145 mg Hydrochlorothiazide (Microzide) 12.5 mg PO DAILY [facility] Last Admin: 10/30/17 11:47 Dose: 12.5 mg Losartan Potassium (Cozaar) 50 mg PO DAILY [facility] Last Admin: 10/30/17 11:43 Dose: 50 mg Promethazine HCl (Phenergan Syrup) 12.5 mg PO Q6 PRN PRN Reason: Cough Rosuvastatin Calcium (Crestor) 10 mg PO HS [facility] Last Admin: 10/29/17 21:35 Dose: 10 mg Fluticasone/Salmeterol (Advair Diskus 250/50) 1 puff IH RQ12 [facility] Last Admin: 10/30/17 19:26 Dose: 1 puff Sucralfate (Carafate Tab) 1 gm PO QID [facility] Last Admin: 10/30/17 18:15 Dose: 1 gm Zolpidem Tartrate (Ambien) 5 mg PO HS [facility] Last Admin: 10/29/17 23:17 Dose: 5 mg - Labs Labs: 10/28/17 22:44 10/28/17 22:44 PT 11.2 SECONDS (9.7-12.2) 10/28/17 22:44 INR 1.0 10/28/17 22:44 APTT 30 SECONDS (21-34) 10/28/17 22:44
--- NOTE | 2017-10-30 20:37 | CARD ---
APPROVED REPORT EXAM: Two-dimensional and M-mode echocardiogram with Doppler and color Doppler. Other Information Quality : GoodRhythm : INDICATION Chest Pain Palpitations RISK FACTORS Hypertension 2D DIMENSIONS IVSd1.1 (0.7-1.1cm)LVDd4.7 (3.9-5.9cm) PWd1.1 (0.7-1.1cm)LVDs3.1 (2.5-4.0cm) FS (%) 34.5 %LVEF (%)63.6 (>50%) M-Mode DIMENSIONS Left Atrium (MM)3.29 (2.5-4.0cm)Aortic Root3.32 (2.2-3.7cm) Aortic Cusp Exc.2.21 (1.5-2.0cm) Mitral Valve MV E Jjpygmss22.9cm/sMV A Jernaabb96.7cm/sE/A ratio0.6 TDI E/Lateral E'0.0E/Medial E'0.0 Tricuspid Valve TR Peak [id number]/sTR Peak Gr.70nsFiSQMO88rlIs LEFT VENTRICLE The left ventricle is normal size. There is normal left ventricular wall thickness. The left ventricular function is normal. The left ventricular ejection fraction is within the normal range. 67% No regional wall motion abnormalities noted. Transmitral Doppler flow pattern is Grade I-abnormal relaxation pattern. No left ventricle thrombus noted on this study. There is no ventricular septal defect visualized. There is no left ventricular aneurysm. There is no mass noted in the left ventricle. RIGHT VENTRICLE The right ventricle is normal size. There is normal right ventricular wall thickness. The right ventricular systolic function is normal. ATRIA The left atrium size is normal. The right atrium size is normal. The interatrial septum is intact with no evidence for an atrial septal defect. AORTIC VALVE The aortic valve is normal in structure and function. No aortic regurgitation is present. There is no aortic valvular stenosis. There is no aortic valvular vegetation. MITRAL VALVE The mitral valve is normal in structure and function. There is no evidence of mitral valve prolapse. There is no mitral valve stenosis. There is no mitral valve regurgitation noted. TRICUSPID VALVE The tricuspid valve is normal in structure and function. There is no tricuspid valve regurgitation noted. There is no tricuspid valve prolapse or vegetation. There is no tricuspid valve stenosis. PULMONIC VALVE The pulmonary valve is normal in structure and function. There is no pulmonic valvular regurgitation. There is no pulmonic valvular stenosis. GREAT VESSELS The aortic root is normal in size. The ascending aorta is normal in size. The pulmonary artery is normal. The IVC is normal in size and collapses >50% with inspiration. PERICARDIAL EFFUSION The pericardium appears normal. There is no pleural effusion. <Conclusion> Normal LV systolic function. Transmitral Doppler flow pattern is Grade I-abnormal relaxation pattern. Normal Doppler.
[2017-10-31] MEDS: Fluticasone-Salmeterol 250-50mcg Diskus IH SCH (07:31)
[2017-10-31 08:17] VITALS: TEMP 97.8; O2SAT 95
[2017-10-31 08:18] VITALS: BP 136/86
[2017-10-31] MEDS: Enoxaparin 40 mg Syringe SC SCH (09:27)
[2017-10-31] MEDS: diltiaZEM 120 mg/24 Hours CD Cap PO SCH (09:27)
--- NOTE | 2017-10-31 10:30 | PN ---
DATE: 10/31/2017. TIME OF EVALUATION: 6:55 a.m. NEUROLOGICAL PROBLEM: Transient ischemic attack affecting right subcortical dysfunction. PHYSICAL EXAMINATION: VITAL SIGNS: Blood pressure 152/89, mean arterial pressure 110, respiratory rate 16, temperature 98.1, pulse rate regular. Patient asymptomatic. Her symptoms has been all disappeared. On the examination no long-track sign and no lateralizing sign at present. We had workup all completed. Electroencephalogram normal electrical activities of the brain. No paroxysmal activities or focal slowing noted. MRI of the brain reviewed, no acute ischemic process. If medically stable, patient can be discharged and should have followup visit with me in a week or 10 days from now for further followup. Mickey Badillo MD
[2017-10-31 11:24] VITALS: PULSE 86
--- NOTE | 2017-10-31 13:12 | CP.PCM.PN ---
Subjective - Date & Time of Evaluation Date of Evaluation: 10/31/17 Time of Evaluation: 11:40 - Subjective Subjective: Patient seen today denies any chest pain, sob, numbness, tinglings, headache, dizziness troponin x 3 - negative Objective - Vital Signs/Intake and Output Vital Signs (last 24 hours): Temp Pulse Resp BP Pulse Ox 97.8 F 86 20 136/86 95 10/31/17 08:15 10/31/17 10:55 10/31/17 08:15 10/31/17 08:15 10/31/17 08:15 Intake and Output: 10/31/17 10/31/17 06:59 18:59 Intake Total 240 Balance 240 - Medications Medications: Current Medications Albuterol (Ventolin Hfa 90 Mcg/Actuation (8 G)) 1 puff INH RQ6 PRN PRN Reason: Shortness of Breath Clopidogrel Bisulfate (Plavix) 75 mg PO DAILY [facility] Last Admin: 10/31/17 09:27 Dose: 75 mg Diltiazem HCl (Cardizem Cd) 120 mg PO DAILY [facility] Last Admin: 10/31/17 09:27 Dose: 120 mg Enoxaparin Sodium (Lovenox) 40 mg SC DAILY [facility] Last Admin: 10/31/17 09:27 Dose: 40 mg Ergocalciferol (Drisdol 50,000 Intl Units Cap) 1 cap PO QD7 [facility] Famotidine (Pepcid) 40 mg PO DAILY [facility] Last Admin: 10/31/17 09:27 Dose: 40 mg Fenofibrate (Tricor) 145 mg PO DAILY [facility] Last Admin: 10/31/17 09:31 Dose: 145 mg Hydrochlorothiazide (Microzide) 12.5 mg PO DAILY [facility] Last Admin: 10/31/17 09:27 Dose: 12.5 mg Losartan Potassium (Cozaar) 50 mg PO DAILY [facility] Last Admin: 10/31/17 09:27 Dose: 50 mg Promethazine HCl (Phenergan Syrup) 12.5 mg PO Q6 PRN PRN Reason: Cough Rosuvastatin Calcium (Crestor) 10 mg PO HS [facility] Last Admin: 10/30/17 21:06 Dose: 10 mg Fluticasone/Salmeterol (Advair Diskus 250/50) 1 puff IH RQ12 [facility] Last Admin: 10/31/17 07:31 Dose: 1 puff Sucralfate (Carafate Tab) 1 gm PO QID [facility] Last Admin: 10/31/17 09:27 Dose: 1 gm Zolpidem Tartrate (Ambien) 5 mg PO HS [facility] Last Admin: 10/30/17 21:06 Dose: 5 mg - Labs Labs: 10/28/17 22:44 10/28/17 22:44 PT 11.2 SECONDS (9.7-12.2) 10/28/17 22:44 INR 1.0 10/28/17 22:44 APTT 30 SECONDS (21-34) 10/28/17 22:44 Assessment and Plan - Assessment and Plan (Free Text) Assessment: A/P 62 yr old female with pmhx of HTN admitted with Chest pain, and Left facial numbness troponin x - negative neuro work up - negative EEG- negative seen by Dr. Badillo today, cleared for discharge from neurology stand point and f /u out patient in his office for further work up D/W Dr. Murphy, cleared for discharge from cardiology stand point and f/u with his office d/w Dr. Omari bradford, stable for discharge home today Discharge plan discussed with patient, who understands and agrees with plan
--- NOTE | 2017-11-01 09:51 | EEG ---
DATE: 10/30/2017 This is a 16-channel electroencephalogram of awake and drowsy adult. During the study, photic stimulation was performed. Hyperventilation was not performed. The resting electroencephalogram was well organized and performed at 30 to 40 microvolts, 9 to 11 Hz alpha activities seen at parietal and occipital leads. These alpha activities symmetrically attenuated with eye opening. The photic stimulation did not evoke driving response noted at 2 to 20 Hz. Intermittent movement artifact contaminated the background rhythm. IMPRESSION: This is a normal electroencephalogram of awake and drowsy adult. During the study, neither electroencephalographic paroxysmal activities nor focal slowing noted. Mickey Badillo MD
== END 2017-10-31 13:37 | disposition home or self-care (01) | DRG 69 ==
LOC: C.ER 21:36 → C.9E 10-29 → C.6T 10-29 13:13
PROVIDERS: ADMIT Internal Medicine Nephrology; ATTEND Internal Medicine Nephrology
DX: G45.9 Transient cerebral ischemic attack, unspecified (principal); G62.9 Polyneuropathy, unspecified; I10 Essential (primary) hypertension; I25.10 Atherosclerotic heart disease of native coronary artery without angina pectoris; J44.9 Chronic obstructive pulmonary disease, unspecified; E78.00 Pure hypercholesterolemia, unspecified; Z86.73 Personal history of transient ischemic attack (TIA), and cerebral infarction without residual deficits; R00.0 Tachycardia, unspecified; R90.82 White matter disease, unspecified

== ENCOUNTER 2018-09-25 09:25 | Outpatient (CLI) | payer MEDICARE | END 2018-09-25 09:26 | disposition home or self-care (01) | LOC: C.LAB 09:25 | DX: M20.21 Hallux rigidus, right foot (principal) ==

== ENCOUNTER 2018-10-08 06:19 | Day surgery (SDC) | payer MEDICARE ==
[2018-10-02 08:46] VITALS: BMI 30.6
[2018-10-08] MEDS ORDERED: Bupivacaine 0.25% 20 ML INJ IJ ONE (07:42)
[2018-10-08] MEDS ORDERED: ceFAZolin 1 gm in NS 1 GM/100 ML BAG IVPB ONE (07:42)
[2018-10-08] MEDS ORDERED: Lidocaine Hydrochloride 10 ML INJ ONE (07:42)
[2018-10-08] MEDS ORDERED: Propofol 10 mg/ml Inj (20 ML) ONE ×2 (08:14→08:37)
[2018-10-08] MEDS ORDERED: Midazolam 2 MG/2 ML VIAL ONE (08:14)
[2018-10-08] MEDS ORDERED: Oxycodone/Acetaminophen 5/325 mg Tab PO PRN ×2 (09:28)
--- NOTE | 2018-10-08 09:30 | PCM.SURG1 ---
Surgeon's Initial Post Op Note - Surgeon's Notes Surgeon: Dr. Bishop Moore Parts Clerk: Dr. Racheal Shin PGY-2 Type of Anesthesia: IV Sedation, Local Anesthesia Administered By: Dr. Moscoso Pre-Operative Diagnosis: 1) right foot hallux limitus. 2) left ankle synovitis Operative Findings: right foot great toe joint dorsal bone spurring Post-Operative Diagnosis: same Operation Performed: 1) right foot cheilectomy of first metatarsophalangeal joint. 2) left ankle joint platelet-rich plasma graft Specimen/Specimens Removed: right foot 1st metatarsal bone Estimated Blood Loss: EBL {In ML}: 1 Blood Products Given: N/A Drains Used: No Drains Post-Op Condition: Good Date of Surgery/Procedure: 10/08/18 Time of Surgery/Procedure: 08:00
[2018-10-08 10:42] VITALS: O2SAT 96
[2018-10-08 11:09] VITALS: TEMP 97.5
[2018-10-08 12:00] VITALS: BP 121/61; PULSE 68; RESP 15
--- NOTE | 2018-10-09 19:55 | PCM.OP ---
Operative Report - Operative Report Date of Surgery/Procedure: 10/08/18 Time of Surgery/Procedure: 08:00 Surgeon: Dr. Bishop Moore Drying Can Worker: Dr. Racheal Shin PGY-2 Anesthesia/Sedation: IV sedation Dr. Moscoso Pre-Operative Diagnosis: 1) right foot hallux limitus 2) left ankle joint synovitis Post-Operative Diagnosis: same Indication for Surgery: The patient is a 63 year-old female with the above diagnoses. The patient has exhausted all conservative treatment at this time and now requests surgical intervention. The patient signed the consent after careful explanation of risks, benefits, complication and alternatives for surgical procedure. No guarantees were given nor implied. NPO status was confirmed prior to bringing the patient into the operating room. Operative Findings: The patient was brought into the operating room and placed on the operating room table in a supine position. A timeout was performed for identification of the correct patient and procedure. The patient received a total of 15 mL of a 1:1 mixture of 1% lidocaine plain and 0.25% marcaine plain in a Rice block to the right foot and an additional 15cc of a 1:1 mixture of 1% lidocaine plain and 0.25% marcaine plain to the left medial ankle. Once local anesthesia was achieved, both extremities were then prepped and draped in normal sterile manner. The esmarch was used to exsanguinate the right foot and a pneumatic ankle tourniquet, applied in the supramalleolar position, was inflated to 250 mm Hg. Procedure/Operation Description: Procedure #1: Right foot cheilectomy of 1st metatarsal Attention was then directed to the dorsal aspect of the first metatarsal head of the right foot where an approximately 5 cm linear longitudinal incision was made medial and parallel to the tendon of the extensor hallucis longus and involved the contour of the deformity. The incision was deepened through the subcutaneous tissues.. Care was taken to identify and retract all vital neurovascular structures. All bleeders were cauterized and ligated as necessary. At this time, a linear type capsulotomy was performed over the dorsal aspect of the first metatarsophalangeal joint The periosteal and capsular structures were then carefully dissected free of their osseous attachments and reflected medially and laterally thus exposing the head of the first metatarsal into the operative site. Next utilizing a sagittal bone saw, the medial and dorsal 1st metatarsal prominences were resected and passed from the operative field. All rough edges were smoothed down with the sagittal saw. Correction of the deformity was assessed at this time and was noted to be excellent. The surgical site was then flushed with copious amounts of normal sterile saline. The capsule was reapproximated and coapted with 3-0 Vicryl. Subcutaneous tissues were reapproximated with 4-0 Vicryl. Skin was closed with 4-0 Nylon sutures. Postoperative bandages included xeroform, 4x4 gauze, kerlix and Coban dressing. Procedure #2: Left ankle platelet-rich plasma graft At this time, approximately 30 mL of the patient's own blood was collected. The blood was placed in a centrifuge on the back table. The centrifuge was turned on and the blood was spun. Utilizing a needle and syringe, approximately 6 mL of platelet-rich plasma was collected in a sterile manner. Utilizing a 22 gauge needle, the 6 mL of platelet-rich plasma was injected to the left ankle joint. The injection site was then cleaned and dressed with a small adhesive bandage. Estimated Blood Loss: 1 mL Complications: None Discharge & Condition: Postoperative Condition: The patient tolerated the anesthesia and procedure well and was escorted to the recovery room with vital signs stable and neurovascular status intact to both lower extremities. This patient will be full weight bearing to both extremities with use of a surgical shoe to the right foot. She will follow up with Dr. Moore in his office.
== END 2018-10-08 11:58 | disposition home or self-care (01) ==
LOC: C.SDS 06:19
PROVIDERS: ATTEND Podiatrist
DX: M20.21 Hallux rigidus, right foot (principal); M20.5X1 Other deformities of toe(s) (acquired), right foot; M65.9 Synovitis and tenosynovitis, unspecified; J44.9 Chronic obstructive pulmonary disease, unspecified; I10 Essential (primary) hypertension; K21.9 Gastro-esophageal reflux disease without esophagitis
CPT/HCPCS: 28289; 88304; J0690; J2250; J2704; J3010